=== PATIENT | female | born 1965 | race African-American/Black ===

== ENCOUNTER 2016-12-02 09:09 | Day surgery (SDC) | payer OTHER ==
[2016-12-01 11:13] VITALS: BMI 32.5
[2016-12-02 09:30] LABS: BASOPHIL 0.5 % (0-2.0); EOSINOPHIL 0.5 % (0-4.5); MCH 27.6 pg (25.7-33.7); MCHC 32.3 g/dl (32.0-36.0); MEAN CELL VOLUME 85.3 fl (80-96); MEAN PLT VOLUME 8.4 fl (7.5-11.1); NEUTROPHILS 66.3 % (42.8-82.8); PLATELET COUNT 191 K/MM3 (134-434)
[2016-12-02 10:00] LABS: ALBUMIN 3.4 g/dl (3.4-5.0); ANION GAP 8 (8-16); BILIRUBIN,TOTAL 0.3 mg/dL (0.2-1.0); CALCIUM 9.4 mg/dL (8.5-10.1); CO2 29 mmol/L (21-32); CREATININE 0.9 mg/dL (0.55-1.02); GLUCOSE,RANDOM 84 mg/dL (74-106); SGOT/AST 22 U/L (15-37); SGPT/ALT 20 U/L (12-78)
[2016-12-02 10:03] LABS: ALK PHOS 75 U/L (45-117)
[2016-12-02] MEDS ORDERED: PROPOFOL 20 ML ONE ×3 (12:22→12:53)
[2016-12-02] MEDS ORDERED: MIDAZOLAM HCL 2 MG/2 ML SINGLE DOSE VIAL ONE (12:23)
[2016-12-02] MEDS ORDERED: SUCCINYLCHOLINE CHLORIDE 200 MG/10 ML VIAL ONE (12:23)
[2016-12-02] MEDS ORDERED: IODINE/POTASSIUM IODIDE 5%/10% 14 ML BOTTLE NR ONE (12:50)
[2016-12-02] MEDS ORDERED: FERRIC SUBSULFATE 500 ML BOTTLE TP ONE (12:50)
[2016-12-02] MEDS ORDERED: PROMETHAZINE HCL 25 MG/1 ML VIAL IVPUSH PRN (13:06)
[2016-12-02] MEDS ORDERED: oxyCODONE HCL 5 MG TABLET PO PRN (13:06)
[2016-12-02] MEDS ORDERED: ONDANSETRON 4 MG/2 ML VIAL IVPUSH PRN (13:06)
[2016-12-02 13:24] VITALS: TEMP 98.2
--- NOTE | 2016-12-02 13:46 | HP ---
History & Physical Update - History History: No Change - Physical Physical: No Change - Assessment Assessment: No Change - Plan Plan: No Change
[2016-12-02] MEDS ORDERED: ACETAMINOPHEN INJECTION 100 ML IVPB ONE (14:23)
[2016-12-02] MEDS ORDERED: LACTATED RINGERS SOLUTION 1,000 ML IV SCH (14:30)
[2016-12-02] MEDS ORDERED: ACETAMINOPHEN 1000 MG/100 ML VIAL (NON FORMULARY) IVPB ONE (14:40)
--- NOTE | 2016-12-02 15:03 | OP ---
Operative Note - Note: Operative Date: 12/02/16 Pre-Operative Diagnosis: HPV. Cervical Dysplasia Operation: Leep cone Post-Operative Diagnosis: Same as Pre-op Surgeon: Elyse Nicole Anesthesia: General Estimated Blood Loss (mls): 20 Operative Report Dictated: Yes
[2016-12-02 18:09] VITALS: BP 130/70; PULSE 74
--- NOTE | 2016-12-03 09:52 | OP ---
DATE OF OPERATION: 12/02/2016 PREOPERATIVE DIAGNOSIS: Human papillomavirus and cervical dysplasia. POSTOPERATIVE DIAGNOSIS: Human papillomavirus and cervical dysplasia. OPERATION: Loop electrosurgical excision procedure cone. SURGEON: Elyse Nicole M.D. ANESTHESIA: General. ESTIMATED BLOOD LOSS: 20 mL. PROCEDURE: Patient was taken to the operating room, placed in dorsal lithotomy position, prepped and draped in the usual sterile fashion. A timeout was performed in accordance with hospital regulation. Speculum was placed in the vagina. Lugol's was placed on the cervix. A large LEEP cone was then performed. Ectocervix was done and then endocervix was sbumitted to Pathology. Cautery with the bulb was then done for hemostasis. Monsel's was then placed. All hemostasis was achieved. All instruments were then removed. Patient tolerated the procedure well and was taken to the recovery room in stable condition. ELYSE NICOLE M.D. [id number]
--- NOTE | 2016-12-03 15:19 | PATH ---
Surgical Pathology Report Patient Name: ROBERT BRISCOE [facility]. Rec. #: [id number] /Age/Gender: 1965 (Age: 51) / F Account: [id number] Location: [facility] SURGICAL Taken: 12/02/2016 Received: 12/02/2016 Reported: 12/03/2016 Physicians: Elyse Nicole M.D. Specimen(s) Received A: EXOCERVICAL BIOPSY B: ENDOCERVICAL CURETTINGS Clinical History HPV Final Diagnosis A. CERVIX, EXOCERVICAL LEEP CONE EXCISION: CERVICAL MUCOSA WITH EXTENSIVE DENUDEMENT OF EPITHELIUM, WITH AREAS OF HEMORRHAGE SUGGESTIVE OF PRIOR BIOPSY SITE. RESIDUAL SQUAMOUS EPITHELIUM WITH MODERATE DYSPLASIA (HIGH GRADE SQUAMOUS INTRAEPITHELIAL LESION, HSIL) PRESENT, AND FOCALLY EXTENDING TO INKED MARGIN. B. CERVIX, ENDOCERVICAL LEEP CONE EXCISION: CERVICAL MUCOSA WITH EXTENSIVE DENUDEMENT OF EPITHELIUM, WITH FOCAL RESIDUAL BENIGN SQUAMOUS EPITHELIUM PRESENT. NO INTACT ENDOCERVICAL ILEUM IDENTIFIED. Comment: Recommend correlation with clinical findings and follow up as clinically indicated. Electronically Signed Mario Nye M.D. Gross Description A. Received in formalin, labeled "exocervical," is a 1.8 cm in diameter annular, unoriented portion of soft tissue, consistent with a cervical LEEP cone biopsy. The mucosa has a brown, mottled appearance. The specimen is inked green, serially sectioned and entirely and sequentially submitted in 4 cassettes. B. Received in formalin, labeled "endocervical," 2.3 x 1.5 x 0.3 cm irregular, unoriented portion of soft tissue, consistent with a portion of cervix. The specimen is inked green, serially sectioned and entirely submitted in 2 cassettes. 12/02/201612/02/2016
== END 2016-12-02 16:00 | disposition home or self-care (01) ==
LOC: JASU-SURG 09:09
PROVIDERS: ATTEND Obstetrics & Gynecology
PROC: 0UBC7ZX Excision of Cervix, Via Natural or Artificial Opening, Diagnostic (ICD-10-PCS; principal; 2016-12-02 11:00)
DX: N87.1 Moderate cervical dysplasia (principal); R87.810 Cervical high risk human papillomavirus (HPV) DNA test positive
CPT/HCPCS: 36415; 80053; 84702; 85025; 86850; 86900; 86901; 88307-TC; 94760

== ENCOUNTER 2016-12-29 19:51 | Emergency (ER) | payer OTHER ==
--- NOTE | 2016-12-29 20:18 | PDOC ---
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 Pt cannot recall any injury. Pt exacerbated on movement/leaning forward. No alleviating factors. Took tylenol with codeine ( last dose today at ~1530hrs: ) without relief.
[2016-12-29 20:26] VITALS: BP 127/53; PULSE 78; TEMP 98.8; BMI 32.9
--- NOTE | 2016-12-29 21:37 | PDOC ---
History of Present Illness - General Chief Complaint: Back Pain Stated Complaint: BACK PAIN Time Seen by Provider: 12/29/16 20:16 History Source: Patient Exam Limitations: No Limitations - History of Present Illness Initial Comments: 12/29/16 21:36 CHIEF COMPLAINT: Back pain HISTORY OF PRESENT ILLNESS: This is a a 51 year old female with a history of lupus on daily Plaquenil who presents complaining of two days of lower back pain. 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 She denies any specific injury prior to the onset of the pain. She does not usually get back pain. She has had some chills, but denies fever. She denies dysuria, hematuria, nausea/vomiting, abdominal pain, or any other symptoms. She has been taking Tylenol and codeine without relief. REVIEW OF SYSTEMS: GENERAL/CONSTITUTIONAL: Chills, no fever. No weakness. No weight change. HEAD, EYES, EARS, NOSE AND THROAT: No change in vision. No ear pain or discharge. No sore throat. CARDIOVASCULAR: No chest pain or palpitations. RESPIRATORY: No cough, wheezing, or shortness of breath. GASTROINTESTINAL: No nausea, vomiting, diarrhea or constipation. GENITOURINARY: No dysuria, frequency, or change in urination. MUSCULOSKELETAL: See HPI. SKIN: No rash or easy bruising. NEUROLOGIC: No headache, vertigo, loss of consciousness, or loss of sensation. PSYCHIATRIC: No depression or anxiety. ENDOCRINE: No increased thirst. No abnormal weight change. HEMATOLOGIC/LYMPHATIC: No anemia, easy bleeding, or history of blood clots. ALLERGIC/IMMUNOLOGIC: No hives or skin allergy. No latex allergy. PHYSICAL EXAM: GENERAL: The patient is awake, alert, and fully oriented, in no acute distress. ENT: Pupils equal, round and reactive to light, extraocular movements intact, sclera anicteric, conjunctiva clear. Neck supple. LUNGS: Clear to auscultation bilaterally. Normal excursion. No respiratory distress or use of accessory muscles. CV: RRR, S1/S2, no MRG. Cap refill < 2 sec. ABDOMEN: Soft, non-distended, non-tender anteriorly even to deep palpation. EXTREMITIES: Normal range of motion, no edema. NEUROLOGICAL: Normal speech, normal gait. CN II-XII grossly intact. No midline cervical vertebral tenderness. Left CVA tenderness. 5/5 upper and lower extremity strength bilaterally. No saddle anesthesia. PSYCH: Normal mood, normal affect. SKIN: Warm, dry, normal turgor, no rashes or lesions noted. Past History - Past Medical History Allergies/Adverse Reactions: Allergies Allergy/AdvReac Type Severity Reaction Status Date / Time No Known Allergies Allergy Verified 12/29/16 20:17 Home Medications: Ambulatory Orders Acetaminophen [Tylenol .Regular Strength -] 650 mg PO Q4H PRN #30 tablet Hydroxychloroquine So4 [Plaquenil -] 200 mg PO DAILY 03/23/16 Losartan Potassium [Cozaar -] 50 mg PO DAILY 03/23/16 Methotrexate [Mexate -] 6 mg PO Q7D 03/23/16 Prednisone [Deltasone -] 2.5 mg PO DAILY 08/06/16 Folic Acid 2 mg PO DAILY 12/01/16 Ibuprofen [Motrin -] 600 mg PO QID PRN #28 tablet 12/02/16 Metronidazole 0.75% Vag. Gel [Metrogel 0.75% *Vaginal Gel* -] 1 applic VG HS #1 tube 12/02/16 Levofloxacin [Levaquin] 750 mg PO DAILY #4 tab 12/30/16 Anemia: Yes Asthma: No Cancer: No Cardiac Disorders: Yes (endocarditis) CVA: No COPD: No CHF: No Dementia: No Diabetes: No GI Disorders: No Disorders: No HTN: No Hypercholesterolemia: No Liver Disease: No Seizures: No Thyroid Disease: No - Immunization History Immunization Up to Date: Yes - Psycho/Social/Smoking Cessation Hx Anxiety: No Suicidal Ideation: No Smoking Status: Yes Smoking History: Never smoked Have you smoked in the past 12 months: No Number of Cigarettes Smoked Daily: 0 If you are a former smoker, when did you quit?: 10YRS AGO Information on smoking cessation initiated: No Hx Alcohol Use: No Drug/Substance Use Hx: No Substance Use Type: None Hx Substance Use Treatment: No *Physical Exam - Vital Signs Last Vital Signs Temp Pulse Resp BP Pulse Ox 98.8 F 78 18 127/53 100 12/29/16 20:17 12/29/16 20:17 12/29/16 20:17 12/29/16 20:17 12/29/16 20:17 ED Treatment Course - LABORATORY CBC & Chemistry Diagram: 12/30/16 00:10 12/30/16 00:10 Medical Decision Making - Medical Decision Making 12/29/16 22:20 A/P: 51 year old female with low back pain and CVA tenderness. Patient does not usually get low back pain and does not recall a specific inciting injury. 1. UA/culture 2. Lumbar xray 3. Toradol/diazepam/oxycodone 4. Re-assess 12/29/16 22:56 -UA with 3+ leukesterase; suspect UTI/pyelo vs. stone -Diazepam/oxycodone canceled, xray canceled -Urine culture ordered -Will obtain CT spiral renal stone protocol -To main ED for further evaluation *DC/Admit/Observation/Transfer Diagnosis at time of Disposition: Urinary tract infection Qualifiers: Urinary tract infection type: site unspecified Hematuria presence: without hematuria Qualified Code(s): N39.0 - Urinary tract infection, site not specified - Discharge Dispostion Disposition: HOME - Prescriptions Prescriptions: Levofloxacin [Levaquin] 750 mg PO DAILY #4 tab - Referrals Referrals: Eric Gonzalez MD [Primary Care Provider] - - Patient Instructions Printed Discharge Instructions: Urinary Tract Infection Additional Instructions: Drink plenty of fluids You were given 1 dose of Levaquin tonight, start taking it again later tomorrow , 1 tablet of 750 mg once daily for another 4 days return into the ER if fever, vomiting or feeling sicker You can take Tylenol 650 mg every 4 hours or Motrin 600 mg every 6 hours for any pain You were a little anemic and had a nodule on your CT scan, you were given a copy of your CT scan to follow-up although followings that were highlighted for you of a focal opacity that had been seen prior, the nodule and also a subpleural bullae - Post Discharge Activity Work/School Note: Back to Work
[2016-12-29 21:59] LABS: URINE APPEARANCE SLCLOUDY; URINE BILIRUBIN NEGATIVE (NEGATIVE); URINE BLOOD NEGATIVE (NEGATIVE); URINE COLOR AMBER; URINE GLUCOSE (UA) NEGATIVE (NEGATIVE); URINE KETONE NEGATIVE (NEGATIVE); URINE NITRITE NEGATIVE (NEGATIVE); URINE UROBILINOGEN 2.0 E.U/dl E.U./dl (0.2-1.0)
[2016-12-29] MEDS ORDERED: OXYCODONE/APAP 5/325MG COMBO TABLET PO ONE (22:14)
[2016-12-29] MEDS ORDERED: diazePAM 2 MG TABLET PO ONE (22:14)
[2016-12-29] MEDS ORDERED: KETOROLAC TROMETHAMINE 30 MG/1 ML VIAL IM ONE (22:14)
[2016-12-29 22:18] LABS: URINE LEUK ESTERASE 3+ (NEGATIVE); URINE PROTEIN 2+ (NEGATIVE)
[2016-12-29 22:21] LABS: URINE HYALINE CAST 81 /lpf; URINE MUCUS MANY; URINE RBC 7 /hpf (0-3); URINE WBC 18 /hpf (3-5)
[2016-12-29] MEDS ORDERED: KETOROLAC TROMETHAMINE 30 MG/1 ML VIAL IVPUSH ONE (22:53)
--- NOTE | 2016-12-29 23:05 | PDOC ---
*Physical Exam - Vital Signs Last Vital Signs Temp Pulse Resp BP Pulse Ox 98.8 F 78 18 127/53 100 12/29/16 20:17 12/29/16 20:17 12/29/16 20:17 12/29/16 20:17 12/29/16 20:17 - Physical Exam General Appearance: Yes: Nourished Respiratory/Chest: negative: Respiratory Distress Neurologic: positive: Fully Oriented, Alert, Normal Mood/Affect ED Treatment Course - LABORATORY CBC & Chemistry Diagram: 12/30/16 00:10 12/30/16 00:10 - ADDITIONAL ORDERS Additional order review: Laboratory Results 12/29/16 21:43 Urine Color Nakia Urine Appearance Slcloudy Urine pH 5.0 Ur Specific [place] 1.027 Urine Protein 2+ H Urine Glucose (UA) Negative Urine Ketones Negative Urine Blood Negative Urine Nitrite Negative Urine Bilirubin Negative Urine Urobilinogen 2.0 e.u/dl H Ur Leukocyte Esterase 3+ H Urine RBC 7 Urine WBC 18 Ur Epithelial Cells Rare Hyaline Casts 81 Urine Mucus Many Medical Decision Making - Medical Decision Making 12/30/16 02:11 With UTI, history of lupus, on plaquinil, no fever and appears well. Labs are stable, CT shows no acute problems. Patient will be sent home on Levaquin and the back pain and lupus Has had anemia prior, discussed with her and she will follow-up with her doctor Patient was given copy of CT report with findings to follow-up with highlight if for her, questionable chronic versus recurrent [place] at the base of the lung, nodule, bullae 12/30/16 02:13 *DC/Admit/Observation/Transfer Diagnosis at time of Disposition: Urinary tract infection Qualifiers: Urinary tract infection type: site unspecified Hematuria presence: without hematuria Qualified Code(s): N39.0 - Urinary tract infection, site not specified - Discharge Dispostion Disposition: HOME Admit: No - Prescriptions Prescriptions: Levofloxacin [Levaquin] 750 mg PO DAILY #4 tab - Referrals Referrals: Eric Gonzalez MD [Primary Care Provider] - - Patient Instructions Printed Discharge Instructions: Urinary Tract Infection Additional Instructions: Drink plenty of fluids You were given 1 dose of Levaquin tonight, start taking it again later tomorrow , 1 tablet of 750 mg once daily for another 4 days return into the ER if fever, vomiting or feeling sicker You can take Tylenol 650 mg every 4 hours or Motrin 600 mg every 6 hours for any pain You were a little anemic and had a nodule on your CT scan, you were given a copy of your CT scan to follow-up although followings that were highlighted for you of a focal opacity that had been seen prior, the nodule and also a subpleural bullae - Post Discharge Activity Work/School Note: Back to Work
[2016-12-29] MEDS ORDERED: KETOROLAC TROMETHAMINE 30 MG/1 ML VIAL ONE (23:56)
[2016-12-30 00:22] LABS: BASOPHIL 0.5 % (0-2.0); EOSINOPHIL 0.4 % (0-4.5); MCH 27.5 pg (25.7-33.7); MCHC 32.3 g/dl (32.0-36.0); MEAN CELL VOLUME 85.1 fl (80-96); MEAN PLT VOLUME 8.8 fl (7.5-11.1); NEUTROPHILS 73.7 % (42.8-82.8); PLATELET COUNT 173 K/MM3 (134-434); RDW 16.1 % (11.6-15.6); WHITE BLOOD COUNT 4.5 K/mm3 (4.0-10.0)
[2016-12-30 00:44] LABS: CALCIUM 8.7 mg/dL (8.5-10.1); CREATININE 1.2 mg/dL (0.55-1.02)
[2016-12-30] MEDS ORDERED: LEVOFLOXACIN 750 MG TABLET PO ONE (01:00)
[2016-12-30] MEDS ORDERED: LEVOFLOXACIN 500 MG TABLET (FP) ONE (01:11)
[2016-12-30] MEDS ORDERED: LEVOFLOXACIN 250 MG TABLET (FP) ONE (01:12)
== END 2016-12-30 01:26 | disposition home or self-care (01) ==
LOC: JERFT 19:51 → JER 19:51
PROC: 3E0333Z Introduction of Anti-inflammatory into Peripheral Vein, Percutaneous Approach (ICD-10-PCS; principal; 2016-12-29)
DX: N39.0 Urinary tract infection, site not specified (principal)
CPT/HCPCS: 36415; 74176; 80048; 81003; 81015; 85025; 99281-25

== ENCOUNTER 2017-01-27 07:34 | Day surgery (SDC) | payer OTHER ==
[2017-01-26 11:50] VITALS: BMI 32.4
[~2017-01-27 07:34] MED LIST: BUPIVACAINE HCL/PF 0.5% (5MG/ML) 10 ML VIAL IJ ONE
[2017-01-27] MEDS ORDERED: PROPOFOL 20 ML ONE ×2 (08:28)
[2017-01-27] MEDS ORDERED: MIDAZOLAM HCL 2 MG/2 ML SINGLE DOSE VIAL ONE (08:29)
[2017-01-27] MEDS ORDERED: ROCURONIUM BROMIDE 50 MG/5 ML VIAL ONE (08:29)
[2017-01-27] MEDS ORDERED: SUCCINYLCHOLINE CHLORIDE 200 MG/10 ML VIAL ONE (08:29)
[2017-01-27] MEDS ORDERED: ceFAZolin SODIUM 1 GM VIAL IVPB ONE (09:42)
[2017-01-27] MEDS ORDERED: ceFAZolin SODIUM 1 GM VIAL ONE ×2 (09:45→09:55)
[2017-01-27] MEDS ORDERED: ONDANSETRON 4 MG/2 ML VIAL IVPUSH PRN (09:49)
[2017-01-27] MEDS ORDERED: DEXAMETHASONE SOD PHOSPHATE 4 MG/1 ML VIAL ONE (09:55)
[2017-01-27] MEDS ORDERED: NEOSTIGMINE METHYLSULFATE 0.5 MG/ML - 10 ML MDV ONE (11:03)
[2017-01-27] MEDS ORDERED: GLYCOPYRROLATE 0.2 MG/1 ML VIAL ONE ×2 (11:05→11:24)
[2017-01-27] MEDS ORDERED: BUPIVACAINE HCL/PF 0.5% (5MG/ML) 10 ML VIAL IJ ONE ×2 (11:10)
--- NOTE | 2017-01-27 11:22 | HP ---
History & Physical Update - History History: No Change - Physical Physical: No Change - Assessment Assessment: No Change - Plan Plan: No Change
[2017-01-27] MEDS ORDERED: DEXTROSE 5%-LACTATED RINGERS 1,000 ML IV SCH (11:30)
[2017-01-27] MEDS ORDERED: ZOLPIDEM TARTRATE 5 MG TABLET PO PRN (11:33)
[2017-01-27] MEDS ORDERED: ACETAMINOPHEN 325 MG TABLET (FP) PO PRN (11:59)
[2017-01-27] MEDS ORDERED: oxyCODONE HCL 5 MG TABLET PO PRN (11:59)
--- NOTE | 2017-01-27 11:59 | OP ---
Operative Note - Note: Operative Date: 01/27/17 Pre-Operative Diagnosis: Cervical Dysplasia. HPV Operation: Robotic laparoscopicTotal Hysterectomy. Bilateral salpingectomy Findings: normal uterus bilateral salpingectomy clips removed Post-Operative Diagnosis: Same as Pre-op Surgeon: Elyse Nicole [employer] Supervisor: Alva Goddard Anesthesia: General Estimated Blood Loss (mls): 50 Operative Report Dictated: Yes
[2017-01-27] MEDS ORDERED: HYDROmorphone HCL CARPU-JECT 1 MG/1 ML DISP.SYRIN IVPB PRN (12:11)
[2017-01-27] MEDS: HYDROmorphone HCL CARPU-JECT 1 MG/1 ML DISP.SYRIN IVPUSH PRN ×2 (12:15→12:50)
[2017-01-27] MEDS ORDERED: HYDROmorphone HCL CARPU-JECT 2 MG/1 ML DISP.SYRIN ONE (12:15)
[2017-01-27] MEDS ORDERED: BUPIVACAINE HCL/PF 0.5% (5MG/ML) 10 ML VIAL ONE (12:18)
--- NOTE | 2017-01-27 12:52 | CON.CARD ---
Consult Consult Specialty:: Cardiology Referred by:: Dr. Nicole Reason for Consultation:: Post op follow up - History of Present Illness Chief Complaint: s/p lap hysterectomy and salpingectomy History of Present Illness: 51 year old woman with a history of HTN, SLE with h/o associated pericardial effusion now s/p elective hysterectomy and salpingectomy. Pt was seen and examined in the recovery room in [facility]. tolerated procedure well without complication. only c/o mild pain presently. denies any chest pain, sob, palpitations. - History Source History Provided By: Patient, Medical Record Limitations to Obtaining History: No Limitations - Past Medical History Cardio/Vascular: Yes: HTN, Other (h/o pericardial effusion) ...LMP Comment: 2008 Rheumatology: Yes: Lupus - Alcohol/Substance Use Hx Alcohol Use: No - Smoking History Smoking history: Never smoked Have you smoked in the past 12 months: No Aproximately how many cigarettes per day: 0 If you are a former smoker, when did you quit?: 10YRS AGO - Social History ADL: Independent History of Recent Travel: No Home Medications - Allergies Allergies/Adverse Reactions: Allergies Allergy/AdvReac Type Severity Reaction Status Date / Time No Known Drug Allergies Allergy Verified 01/27/17 08:33 NSAIDS (Non-Steroidal AdvReac Unknown Verified 01/27/17 08:33 Anti-Inflamma - Home Medications Home Medications: Ambulatory Orders Acetaminophen [Tylenol .Regular Strength -] 650 mg PO Q4H PRN #30 tablet Hydroxychloroquine So4 [Plaquenil -] 200 mg PO DAILY 03/23/16 Losartan Potassium [Cozaar -] 50 mg PO DAILY 03/23/16 Methotrexate [Mexate -] 6 mg PO Q7D 03/23/16 Folic Acid 2 mg PO DAILY 12/01/16 Oxycodone HCl/Acetaminophen [Percocet 5-325 mg Tablet -] 1 tab PO Q4H #20 tablet MDD 6 01/27/17 Family Disease History - Family Disease History Family History: Denies Review of Systems - Review of Systems Constitutional: denies: No Symptoms, Chills, Diaphoresis, Fever, Lethargy, Loss of Appetite, Malaise, Night Sweats, Unintentional Wgt. Loss, Weakness, Other Eyes: denies: No Symptoms, Blind Spots, Blurred Vision, Double Vision, Eye Pain , Floaters, Photophobia, Recent Change in Vision, Other HENT: denies: No Symptoms, Difficult Swallowing, Ear Discharge, Ear Pain, Epistaxis, Gingival Bleeding, Hearing Loss, Mouth Swelling, Nasal Congestion, Ocular Prosthesis, Throat Pain, Toothache, Ringing in Ears, Other Neck: denies: No Symptoms, Decreased ROM, Lumps, Pain on Movement, Stiffness, Swollen Glands, Tenderness, Other Cardiovascular: denies: No Symptoms, Chest Pain, Edema, Palpitations, Shortness of Breath, Other Respiratory: denies: No Symptoms, Cough, Exercise Intolerance, Hemoptysis, Orthopnea, PND, Snoring, SOB, SOB on Exertion, Wheezing, Other Gastrointestinal: denies: No Symptoms, Abdominal Pain, Bloating, Constipation, Diarrhea, Dysphagia, Indigestion, Melena, Nausea, Rectal Bleeding, Vomiting, Vomiting Blood, Other Genitourinary: denies: No Symptoms, Burning, Discharge, Dysuria, Flank Pain, Frequency, Hematuria, Incontinence, Lesions, Menses, Pain, Testicular Mass, Testicular Pain, Testicular Swelling, Urgency, Vaginal Bleeding, Other Breasts: denies: No Symptoms Reported, See HPI, Breast Implants, Discharge from Nipple, Lumps, Pain, Skin Changes, Other Musculoskeletal: denies: No Symptoms, Back Pain, Crepitus, Decreased ROM, Extremity Pain, Joint Pain, Joint Swelling, Muscle Pain, Muscle Cramps, Muscle Weakness, Other Integumentary: reports: Incision. denies: No Symptoms, Blister, Bruising, Change in Color, Eczema, Erythema, Lesions, Lump, Pallor, Pruritis, Rash, Wound , Other Neurological: denies: No Symptoms, Change in LOC, Change in Speech, Confusion, Dizziness, Headache, Incoordination, Numbness, Parasthesia, Pre-Existing Deficit , Seizure, Syncope, Tremors, Unsteady Gait, Weakness, Other Endocrine: denies: No Symptoms, Excessive Sweating, Flushing, Increased Hunger, Increased Thirst, Intolerance to Cold, Intolerance to Heat, Unexplained Weight Gain, Unexplained Weight Loss, Other Hematology/Lymphatic: denies: No Symptoms, Easily Bruised, Excessive Bleeding, Swollen Glands, Other Psychiatric: denies: No Symptoms, Altered Sleep Pattern, Anxiety, Depression, Hallucinations, Panic, Paranoia, Suicidal, Other - Risk Factors Known Risk Factors: Yes: Hypertension Vital Signs: Vital Signs Temperature 97.7 F 01/27/17 11:28 Pulse Rate 86 01/27/17 12:30 Respiratory Rate 16 01/27/17 12:30 Blood Pressure 114/65 01/27/17 12:30 O2 Sat by Pulse Oximetry (%) 100 01/27/17 12:30 Constitutional: Yes: Well Nourished, No Distress, Calm Eyes: Yes: WNL, Conjunctiva Clear, EOM Intact, PERRL HENT: Yes: WNL, Atraumatic, Normocephalic Neck: Yes: WNL, Supple, Trachea Midline Respiratory: Yes: WNL, Regular, CTA Bilaterally. No: Rales, Rhonchi, Wheezes Gastrointestinal: Yes: WNL, Normal Bowel Sounds, Soft. No: Distention, Tenderness Renal/: Yes: WNL Cardiovascular: Yes: WNL, Regular Rate and Rhythm. No: Bradycardia, Tachycardia , Pulse Irregular, Gallop, Rub, Varicosities JVD: No Carotid Bruit: No PMI: Non-Displaced Heart Sounds: Yes: S1, S2. No: Split S2, S3, S4, Clicks, Gallop, Rub, Bruit Murmur: No: Systolic Murmur, Diastolic Murmur Musculoskeletal: Yes: WNL Extremities: Yes: WNL Edema: No Peripheral Pulses WNL: Yes Peripheral Pulses: 2+ Left Doralis Pedis, 2+ Right Dorsalis Pedis Integumentary: Yes: WNL Neurological: Yes: WNL, Alert, Oriented, Cran Nerves II-XII Intact ...Motor Strength: WNL Psychiatric: Yes: WNL, Alert, Oriented - Other Data Labs, Other Data: Laboratory Tests 01/25/17 01/25/17 14:00 14:00 WBC 5.4 Hgb 11.3 D Hct 35.1 D Plt Count 169 Sodium 141 Potassium 4.1 Chloride 104 Carbon Dioxide 27 BUN 15 D Creatinine 1.0 Random Glucose 85 Calcium 9.3 Total Bilirubin 0.4 D AST 24 ALT 22 Alkaline Phosphatase 88 Total Protein 8.2 Albumin 3.5 ekg-reviewed from office Echo: Report Reviewed Imaging - Results Chest X-ray: Report Reviewed, Image Reviewed EKG: Report Reviewed, Image Reviewed Other: Report Reviewed, Image Reviewed Assessment/Plan 51 year old woman with a history of HTN, SLE with h/o associated pericardial effusion now s/p elective hysterectomy and salpingectomy. Pt was seen and examined in the recovery room in [place]. tolerated procedure well without complication. only c/o mild pain presently. denies any chest pain, sob, palpitations. Perioperative cardiac evaluation -pt tolerated procedure well without cardiac complication -resume home Losartan once tolerating po meds -routine post operative monitoring, does not require telemetry -no additional inpatient cardiac work up needed, will be available if any questions arise
--- NOTE | 2017-01-27 23:21 | OP ---
DATE OF OPERATION: 01/27/2017 PREOPERATIVE DIAGNOSIS: Cervical dysplasia and human papilloma virus. PROCEDURE: Robotic laparoscopic total hysterectomy and bilateral salpingectomy. POSTOPERATIVE DIAGNOSIS: Cervical dysplasia and human papilloma virus. SURGEON: Jace Christie MD BLOCK CAPTAIN: Alva Goddard DO ANESTHESIOLOGIST: Geena Pride CRNA and James Jones MD ANESTHESIA: General. SPECIMEN REMOVED: Uterus, fallopian tube clips and bilateral fallopian tubes. ESTIMATED BLOOD LOSS: 50 mL. DESCRIPTION OF PROCEDURE: The patient was taken to the operating room and placed in the dorsal lithotomy position, prepped and draped in the usual sterile fashion. Speculum was placed in the vagina. Anterior lip was grasped with single-tooth tenaculum. The cervix was then dilated to accommodate the uterine manipulator. Jones catheter was inserted into the bladder. Attention was then draw to the umbilicus after an 8-mm umbilical incision was made. Veress needle was inserted into the cavity. Approximately 3-4 L of CO2 was insufflated in the cavity. The Veress needle was then removed and an 8-mm trocar was inserted. Visualization revealed normal uterus and tube, which had had clips placed. Salpingectomy clips were seen on the right side. Two tenaculums on the left were placed, one AirSeal cannula in the upper abdomen and another 8-mm trocar under direct visualization. Two cannulae were placed on the right parallel to each other at the same level of the umbilicus and the table was placed in steep Trendelenburg. The Da Flavio robot was then side docked to the patient's bedside. Trocar was then inserted onto the Da Flavio and all trocars were docked. Instruments were replaced under direct visualization, vessel sealer on the left and Endoshears and tenaculum on the right. After instruments had been placed, attention was then placed to the console where control of the console was done. Tenaculum was then used to move the uterus. The uteroovarian ligament was identified and clamped on the left. Uterine arteries were identified and clamped on the left. Vesicouterine section was then entered and bladder was bluntly dissected out of the operative field. Cardinal ligament was identified and clamped down to the level of the uterosacral ligaments. The tenaculum was then moved to the left where the right side was done. The right uteroovarian ligament was identified, clamped and cut. Uterine arteries were clamped and cut and cardinal ligament was identified, clamped and cut. The bladder was bluntly dissected out of the operative field. A colpotomy had been done, but the manipulator was then placed in the endometrial cavity. The balloon was then removed. Endoshears were then used to cut the cervix and the vagina away from each other. Hemostasis was achieved. Uterus was then removed and the cervix. Tubes were bilaterally grasped and vessel sealer used to remove the fallopian tubes bilaterally. Two Endoclips were seen on the right side. The bowel was noted to have attachment to the clip and that was removed. Clip was removed from the vagina. V-Loc 0 suture was then grasped and passed through the vagina and continuous stitch using 0 V-Loc suture and oversewn in the middle was then done. Seal was confirmed. Ureters bilaterally were noted to have peristalsis. Good hemostasis was achieved. Irrigation done. Needle was then removed through the trocar and all trocars were then removed. CO2 was removed. Hemostasis was achieved. Incisions were then closed using 4-0 Biosyn suture and estimated blood loss was 50 mL. JACE CHRISTIE M.D. [id number]
[2017-01-28 07:56] LABS: BASOPHIL 0.2 % (0-2.0); MCH 28.1 pg (25.7-33.7); MCHC 32.7 g/dl (32.0-36.0); MEAN CELL VOLUME 85.7 fl (80-96); MEAN PLT VOLUME 8.3 fl (7.5-11.1); NEUTROPHILS 88.8 % (42.8-82.8); PLATELET COUNT 147 K/MM3 (134-434); RDW 17.5 % (11.6-15.6); WHITE BLOOD COUNT 6.6 K/mm3 (4.0-10.0)
[2017-01-28] MEDS ORDERED: ENOXAPARIN NA (PORCINE) 40 MG/0.4 ML DISP.SYRIN SQ SCH (10:00)
[2017-01-28 10:20] VITALS: BP 112/72; PULSE 77; TEMP 98.6
[2017-01-28] MEDS ORDERED: OXYCODONE/APAP 5/325MG COMBO TABLET PO PRN (11:26)
[2017-01-28] MEDS ORDERED: SIMETHICONE 80 MG TAB.CHEW (FP) PO PRN (11:26)
--- NOTE | 2017-01-28 12:08 | PN ---
Progress Note (SOAP) - Subjective Chief Complaint: Pt doing well +flatus - Current Medications Current Medications: Active Medications Acetaminophen (Tylenol -) 650 mg PO Q4H PRN PRN Reason: PAIN Stop: 01/30/17 11:58 Last Admin: 01/28/17 07:59 Dose: 650 mg Enoxaparin Sodium (Lovenox -) 40 mg SQ DAILY MAURICIO Last Admin: 01/28/17 09:58 Dose: 40 mg Hydromorphone HCl (Dilaudid Injection -) 1 mg IVPUSH [id number] PRN PRN Reason: PAIN Stop: 01/30/17 09:50 Last Admin: 01/27/17 12:50 Dose: 0.5 mg Hydromorphone HCl (Dilaudid Injection -) 1 mg IVPB Q4H PRN PRN Reason: PAIN Last Admin: 01/27/17 17:41 Dose: 1 mg Dextrose/Lactated Ringer's (D5-Lr -) 1,000 mls @ 125 mls/hr IV ASDIR MAURICIO Oxycodone HCl (Roxicodone -) 10 mg PO Q4H PRN PRN Reason: PAIN Last Admin: 01/28/17 07:55 Dose: 10 mg Simethicone (Mylicon -) 80 mg PO Q4H PRN PRN Reason: GAS Zolpidem Tartrate (Ambien -) 5 mg PO HS PRN PRN Reason: INSOMNIA - Objective Vital Signs: Vital Signs Temperature 98.6 F 01/28/17 10:00 Pulse Rate 77 01/28/17 10:00 Respiratory Rate 20 01/28/17 10:00 Blood Pressure 112/72 01/28/17 10:00 O2 Sat by Pulse Oximetry (%) 100 01/27/17 14:20 Constitutional: Yes: Well Nourished, No Distress Neck: Yes: WNL Cardiovascular: Yes: WNL Gastrointestinal: Yes: WNL, Normal Bowel Sounds, Soft Musculoskeletal: Yes: WNL Extremities: Yes: WNL Edema: No Integumentary: Yes: WNL Wound/Incision: Yes: Clean/Dry, Well Approximated Labs Lab Results: CBC, BMP 01/28/17 06:00 Problem List - Problems (1) Status post hysterectomy Code(s): Z90.710 - ACQUIRED ABSENCE OF BOTH CERVIX AND UTERUS Assessment/Plan S/P Lap Robotic total hysterectomy bilateral salpingectomy POD 1 Plan DC home RTO 2 weeks
--- NOTE | 2017-01-31 11:34 | PATH ---
Surgical Pathology Report Patient Name: ROBERT BRISCOE [facility]. Rec. #: [id number] /Age/Gender: 1965 (Age: 51) / F Account: [id number] Location: AMBULATORY SURG Taken: 01/27/2017 Received: 01/27/2017 Reported: 01/31/2017 Physicians: Elyse Nicole M.D. Specimen(s) Received A: LEFT FALLOPIAN TUBE B: RIGHT FALLOPIAN TUBE C: UTERUS AND CERVIX Clinical History High grade dysplasia Final Diagnosis A. FALLOPIAN TUBE, LEFT, SALPINGECTOMY: BENIGN FALLOPIAN TUBE WITH FOCAL FIBRINOHEMORRHAGIC ADHESIONS. B. FALLOPIAN TUBE, RIGHT, SALPINGECTOMY: BENIGN FALLOPIAN TUBE WITH VASCULAR CONGESTION. C. UTERUS AND CERVIX, ROBOTIC ASSISTED LAPAROSCOPIC TOTAL HYSTERECTOMY: PORTION OF CERVIX: ENDOCERVIX WITH MILD CHRONIC CERVICITIS; NO ECTOCERVICAL MUCOSA PRESENT (SEE COMMENT). ENDOMETRIUM: INACTIVE/ATROPHIC. MYOMETRIUM: FOCAL ADENOMYOSIS. UTERINE SEROSA: WITHOUT SIGNIFICANT PATHOLOGIC CHANGES. Comment: No ectocervical squamous mucosa is present in the current specimen; refer to [id number] for the prior cervical cone biopsy/excision results. Electronically Signed Eleazar Stroud M.D. Gross Description A. Received in formalin labeled "left fallopian tube" is a 1.8 cm in length fimbriated portion of fallopian tube. The outer surface is austin-pink. Sectioning reveals a pinpoint lumen. Coating [employer]aking [employer] sections are submitted in 2 cassettes as follows: 1-fimbria; 2-cross sections of fallopian tube. B. Received in formalin labeled "right fallopian tube" is a 1.5 cm in length fimbriated portion of fallopian tube. The outer surface is austin-pink. Sectioning reveals a pinpoint lumen. Coating And Baking Operator sections are submitted in 2 cassettes as follows: 1-fimbria; 2-cross sections of fallopian tube. C. Received in formalin labeled "uterus and cervix" is a 42 g uterus with a small portion of attached cervix. There is no ectocervix present. The specimen measures 6.3 cm from superior to inferior, 4 cm from left to right and 2.3 cm from anterior to posterior. The serosa is austin and smooth. The endometrial cavity measures 4 cm in length and 1.3 cm from cornu to cornu. The endometrium is austin and averages 0.1 cm in thickness. The myometrium is austin-pink and averages 1.1 cm in thickness. No intramural nodules are identified. Coating And Baking Operator sections are submitted in 7 cassettes as follows: 1-cervical stump margin of resection; 2-anterior endocervix; 3-posterior endocervix; 7-6-wuclbvpb endomyometrium; 1-8-qydnrysvu endomyometrium. 01/27/201701/27/2017
== END 2017-01-28 12:45 | disposition home or self-care (01) ==
LOC: JASUSAT 07:34 → EDSTATUS 10:00 → J3W 14:06 → JASUSAT 01-28 12:45
PROVIDERS: ATTEND Obstetrics & Gynecology
PROC: 0UT7FZZ Resection of Bilateral Fallopian Tubes, Via Natural or Artificial Opening With Percutaneous Endoscopic Assistance (ICD-10-PCS; 2017-01-27)
PROC: 8E0W4CZ Robotic Assisted Procedure of Trunk Region, Percutaneous Endoscopic Approach (ICD-10-PCS; 2017-01-27)
PROC: 0UT9FZZ Resection of Uterus, Via Natural or Artificial Opening With Percutaneous Endoscopic Assistance (ICD-10-PCS; principal; 2017-01-27 09:00)
PROC: 0UTC7ZZ Resection of Cervix, Via Natural or Artificial Opening (ICD-10-PCS; 2017-01-27 09:00)
DX: N87.9 Dysplasia of cervix uteri, unspecified (principal); R87.810 Cervical high risk human papillomavirus (HPV) DNA test positive; I10 Essential (primary) hypertension
CPT/HCPCS: 58552; S2900; 36415; 85025; 88302-TC; 88307-TC; 94010; 94760

== ENCOUNTER 2017-06-06 19:52 | Inpatient (IN) | payer OTHER ==
[2017-06-06 20:12] VITALS: BMI 30.5
--- NOTE | 2017-06-06 20:41 | PDOC ---
History of Present Illness - History of Present Illness Initial Comments: 06/06/17 21:33 52 F with a PMHx of lupus presents to the ED with SOB and chest tightness for 2 days. Patient reports that her SOB is worse when lying down and her chest tightness is worsened on deep breath. She reports similar symptoms multiple times in the past, often in the context of lupus flares. However, she reports that last time she presented to the ED with these symptoms she had pneumonia. She states her SOB and chest tightness feels more like a lupus flare up. She saw her PCP on Tuesday and had a stress test, EKG, and other lab tests done, but the results are not back yet. She denies history of blood clots. No recent travel/immobilization. She denies fever, chills, nausea, vomiting, diarrhea. She denies leg swelling. <Alexandre Palma - Last Filed: 06/07/17 00:09> <Claritza Johnson - Last Filed: 06/07/17 00:24> - General Chief Complaint: Shortness of Breath Stated Complaint: SHORTNESS OF BREATH Time Seen by Provider: 06/06/17 20:41 Past History - Past Medical History Anemia: Yes Asthma: No Cancer: No Cardiac Disorders: Yes (endocarditis) CVA: No COPD: No CHF: No Dementia: No Diabetes: No GI Disorders: No Disorders: No HTN: No Hypercholesterolemia: No Liver Disease: No Seizures: No Thyroid Disease: No - Immunization History Immunization Up to Date: Yes - Psycho/Social/Smoking Cessation Hx Anxiety: No Suicidal Ideation: No Smoking Status: Yes Smoking History: Never smoked Have you smoked in the past 12 months: No Number of Cigarettes Smoked Daily: 0 If you are a former smoker, when did you quit?: 10YRS AGO Hx Alcohol Use: No Drug/Substance Use Hx: No Substance Use Type: None Hx Substance Use Treatment: No <Alexandre Palma - Last Filed: 06/07/17 00:09> <Claritza Johnson - Last Filed: 06/07/17 00:24> - Past Medical History Allergies/Adverse Reactions: Allergies Allergy/AdvReac Type Severity Reaction Status Date / Time No Known Drug Allergies Allergy Verified 06/06/17 20:05 NSAIDS (Non-Steroidal AdvReac Unknown Verified 06/06/17 20:05 Anti-Inflamma Home Medications: Ambulatory Orders Acetaminophen [Tylenol .Regular Strength -] 650 mg PO Q4H PRN #30 tablet Hydroxychloroquine So4 [Plaquenil -] 200 mg PO DAILY 03/23/16 Losartan Potassium [Cozaar -] 50 mg PO DAILY 03/23/16 Methotrexate [Mexate -] 6 mg PO Q7D 03/23/16 Folic Acid 2 mg PO DAILY 12/01/16 Review of Systems - Review of Systems Comments:: 06/06/17 21:36 "GENERAL/CONSTITUTIONAL: No fever or chills. No weakness. HEAD, EYES, EARS, NOSE AND THROAT: No change in vision. No ear pain or discharge. No sore throat. CARDIOVASCULAR: (+) chest pain, shortness of breath. RESPIRATORY: No cough, wheezing, or hemoptysis. GASTROINTESTINAL: No nausea, vomiting, diarrhea or constipation. GENITOURINARY: dysuria, frequency, or change in urination. MUSCULOSKELETAL: No joint or muscle swelling or pain. No neck or back pain. SKIN: No rash NEUROLOGIC: No headache, vertigo, loss of consciousness, or change in strength. ENDOCRINE: No increased thirst. No abnormal weight change. HEMATOLOGIC/LYMPHATIC: No anemia, easy bleeding, or history of blood clots. ALLERGIC/IMMUNOLOGIC: No hives or skin allergy. " <Alexandre Palma - Last Filed: 06/07/17 00:09> *Physical Exam - Vital Signs Last Vital Signs Temp Pulse Resp BP Pulse Ox 98.3 F 60 20 124/67 06/06/17 20:05 06/06/17 20:05 06/06/17 20:05 06/06/17 20:05 - Physical Exam Comments: 06/06/17 21:36 "GENERAL: Awake, alert, and fully oriented, in no acute distress HEAD: No signs of trauma EYES: PERRLA, EOMI, sclera anicteric, conjunctiva clear ENT: Auricles normal inspection, hearing grossly normal, nares patent, oropharynx clear without exudates. Moist mucosa NECK: Normal ROM, supple, no lymphadenopathy, JVD, or masses LUNGS: Breath sounds slightly diminished at bases, clear to auscultation bilaterally. No wheezes, and no crackles HEART: Regular rate and rhythm, normal S1 and S2, no murmurs, rubs or gallops ABDOMEN: Soft, nontender, normoactive bowel sounds. No guarding, no rebound. No masses EXTREMITIES: Normal range of motion, no edema. No clubbing or cyanosis. No cords, erythema, or tenderness NEUROLOGICAL: Cranial nerves II through XII grossly intact. Normal speech, normal gait SKIN: Warm, Dry, normal turgor, no rashes or lesions noted. " <Soheila Palmaan - Last Filed: 06/07/17 00:09> - Vital Signs Last Vital Signs Temp Pulse Resp BP Pulse Ox 98.3 F 60 20 124/67 06/06/17 20:05 06/06/17 20:05 06/06/17 20:05 06/06/17 20:05 <Claritza Johnson - Last Filed: 06/07/17 00:24> Heart Score/ECG Review - History History: Slightly suspicious - Electrocardiogram EKG: Normal - Age Age: 45-65 - Risk Factors Based on the list above the patient has:: No risk factors known - ECG Impressions Comment:: 06/06/17 21:37 EKG with NSR, no RADHA/STDs, no TWIs, intervals wnl, left axis deviation <LouieAlexandre - Last Filed: 06/07/17 00:09> ED Treatment Course - LABORATORY CBC & Chemistry Diagram: 06/06/17 21:05 06/06/17 21:05 <LouieAlexandre - Last Filed: 06/07/17 00:09> - LABORATORY CBC & Chemistry Diagram: 06/06/17 21:05 06/06/17 21:05 - ADDITIONAL ORDERS Additional order review: Laboratory Results 06/06/17 06/06/17 06/06/17 21:40 21:05 21:05 INR 1.20 H PTT (Actin FS) 31.8 D-Dimer 2197 H VBG pH 7.36 POC VBG pCO2 46.4 POC VBG pO2 22.5 L Mixed VBG HCO3 25.8 H Sodium Potassium Chloride Carbon Dioxide Anion Gap BUN Creatinine Creat Clearance w eGFR Random Glucose Calcium Total Bilirubin AST ALT Alkaline Phosphatase Creatine Kinase Creatine Kinase Index CK-MB (CK-2) Troponin I B-Natriuretic Peptide Total Protein Albumin 06/06/17 06/06/17 21:05 21:05 INR PTT (Actin FS) D-Dimer VBG pH POC VBG pCO2 POC VBG pO2 Mixed VBG HCO3 Sodium 139 Potassium 3.9 Chloride 106 Carbon Dioxide 26 Anion Gap 7 L BUN 15 Creatinine 1.0 Creat Clearance w eGFR 57.78 Random Glucose 81 Calcium 9.1 Total Bilirubin 0.3 D AST 28 ALT 18 Alkaline Phosphatase 75 Creatine Kinase 264 H Creatine Kinase Index 0.4 CK-MB (CK-2) 1.114 Troponin I < 0.02 B-Natriuretic Peptide 191.59 H Total Protein 8.5 H Albumin 3.5 06/06/17 21:05 RBC 3.39 L MCV 85.3 MCHC 32.3 RDW 15.1 D MPV 9.4 D Neutrophils % 84.8 H Lymphocytes % 8.4 D Monocytes % 5.8 Eosinophils % 0.1 D Basophils % 0.9 D - RADIOLOGY Radiograph Interpretation: 06/06/17 22:23 Chest X-Ray Reported by Dr. Ric Hewitt Impression: cardiomegaly, no acute pathology. 06/06/17 23:54 Chest CTA Reported by Dr. Ric Hewitt Impression: No evidence of pulmonary embolism. Chronic lung disease and bibasilar atelectasis, left greater than right. Cardiomegaly and trace pericardial effusion. <Claritza Johnson - Last Filed: 06/07/17 00:24> Medical Decision Making - Medical Decision Making 06/06/17 21:37 52 F with SLE presents to ER with SOB and chest pressure, concerning for lupus flare. Pt has h/o PNA but does not appear septic, with no fevers or cough at this time. Low suspicion for ACS given lack of cardiac risk factors, atypical nature of chest pressure, and lack of EKG findings for ischemia. Will r/o PE with ddimer/CTPE. Pt with no significant risk factors but is complaining of pleuritic chest pain. - Labs,trop, dimer - CXR - CTPE if indicated 06/07/17 00:09 CTPE negative for acute PE. Pt's SOB and chest pressure concerning for lupus flare up. Will initiate steroids and admit for further eval and treatment. <Alexandre Palma - Last Filed: 06/07/17 00:09> - Medical Decision Making 06/06/17 23:[address] Norah Lopez. [phone] <Claritza Johnson - Last Filed: 06/07/17 00:24> *DC/Admit/Observation/Transfer - Attestations Physician Attestion: 06/07/17 00:11 I, Dr. Alexandre Palma MD, attest that this document has been prepared under my direction and personally reviewed by me in its entirety. I further attest, that it accurately reflects all work, treatment, procedures and medical decision -making performed by me. <Alexandre Palma - Last Filed: 06/07/17 00:09> <Claritza Johnson A - Last Filed: 06/07/17 00:24> Diagnosis at time of Disposition: Chest pain Qualifiers: Chest pain type: chest pain on breathing Qualified Code(s): R07.1 - Chest pain on breathing - Referrals Referrals: Eric Gonzalez MD [Primary Care Provider] -
[2017-06-06 21:17] LABS: BASOPHIL 0.9 % (0-2.0); EOSINOPHIL 0.1 % (0-4.5); MCH 27.5 pg (25.7-33.7); MCHC 32.3 g/dl (32.0-36.0); MEAN CELL VOLUME 85.3 fl (80-96); MEAN PLT VOLUME 9.4 fl (7.5-11.1); NEUTROPHILS 84.8 % (42.8-82.8); PLATELET COUNT 245 K/MM3 (134-434); RDW 15.1 % (11.6-15.6); WHITE BLOOD COUNT 6.1 K/mm3 (4.0-10.0)
[2017-06-06 21:40] LABS: INR 1.2 (0.82-1.09); PROTHROMBIN TIME (PATIENT) 13.2 SEC (9.98-11.88)
[2017-06-06 21:43] LABS: ACTIVATED PTT 31.8 SECONDS (26.9-34.4)
[2017-06-06 21:49] LABS: ALBUMIN 3.5 g/dl (3.4-5.0); ALK PHOS 75 U/L (45-117); ANION GAP 7 (8-16); BILIRUBIN,TOTAL 0.3 mg/dL (0.2-1.0); CALCIUM 9.1 mg/dL (8.5-10.1); CO2 26 mmol/L (21-32); GLUCOSE,RANDOM 81 mg/dL (74-106); SGOT/AST 28 U/L (15-37); SGPT/ALT 18 U/L (12-78); TOT PROT 8.5 g/dl (6.4-8.2)
[2017-06-06 21:50] LABS: CPK 264 IU/L (26-192)
[2017-06-06 21:51] LABS: TROPONIN I < 0.02 ng/ml (0.00-0.05)
[2017-06-06 22:01] LABS: VENOUS BLOOD GAS HCO3 25.8 meq/L (19-25); VENOUS PH 7.36 (7.32-7.42)
[2017-06-07] MEDS ORDERED: predniSONE 20 MG TABLET (UD) PO ONE (00:02)
[2017-06-07] MEDS ORDERED: predniSONE 20 MG TABLET (UD) ONE (00:20)
[2017-06-07] MEDS ORDERED: methylPREDNISolone NA SUCC 125 MG/2 ML VIAL IVPB ONE (00:24)
[2017-06-07] MEDS ORDERED: methylPREDNISolone NA SUCC 125 MG/2 ML VIAL ONE (00:29)
[2017-06-07] MEDS ORDERED: METHOTREXATE 2.5 MG TABLET PO SCH (01:45)
[2017-06-07] MEDS: methylPREDNISolone NA SUCC 40 MG/1 ML VIAL IVPB SCH ×3 (02:58→17:08)
--- NOTE | 2017-06-07 08:45 | CON.CARD ---
Consult Consult Specialty:: Cardiology Referred by:: ER Reason for Consultation:: chest pain and sob - History of Present Illness Chief Complaint: chest pain and sob History of Present Illness: 52 year old woman h/o SLE, h/o pericardial effusion admitted with c/o sob and pleurtic chest pain as well as recent weight loss. Recently seen by cardiology in office 06/03/17 ETT done showed no ischemia. pericardial effusion not seen on recent echo in office. pt seen and examined in the er in nad. states the chest tightness occurs with deep inspiration. notes her sob is worse from her chronic soares. no pnd, orthopnea, or Le edema. no lightheadedness dizziness, syncope, or near syncope. - History Source History Provided By: Patient, Medical Record Limitations to Obtaining History: No Limitations - Past Medical History Cardio/Vascular: Yes: HTN, Other (h/o pericardial effusion) Rheumatology: Yes: Lupus - Alcohol/Substance Use Hx Alcohol Use: No - Smoking History Smoking history: Never smoked Have you smoked in the past 12 months: No Aproximately how many cigarettes per day: 0 If you are a former smoker, when did you quit?: 10YRS AGO - Social History ADL: Independent History of Recent Travel: No Home Medications - Allergies Allergies/Adverse Reactions: Allergies Allergy/AdvReac Type Severity Reaction Status Date / Time No Known Drug Allergies Allergy Verified 06/06/17 20:05 NSAIDS (Non-Steroidal AdvReac Unknown Verified 06/06/17 20:05 Anti-Inflamma - Home Medications Home Medications: Ambulatory Orders Acetaminophen [Tylenol .Regular Strength -] 650 mg PO Q4H PRN #30 tablet Hydroxychloroquine So4 [Plaquenil -] 200 mg PO DAILY 03/23/16 Losartan Potassium [Cozaar -] 50 mg PO DAILY 03/23/16 Methotrexate [Mexate -] 6 mg PO Q7D 03/23/16 Folic Acid 2 mg PO DAILY 12/01/16 Family Disease History - Family Disease History Family History: Denies Review of Systems - Review of Systems Constitutional: reports: Malaise, Unintentional Wgt. Loss, Weakness. denies: No Symptoms, Chills, Diaphoresis, Fever, Lethargy, Loss of Appetite, Night Sweats, Other Eyes: denies: No Symptoms, Blind Spots, Blurred Vision, Double Vision, Eye Pain , Floaters, Photophobia, Recent Change in Vision, Other HENT: denies: No Symptoms, Difficult Swallowing, Ear Discharge, Ear Pain, Epistaxis, Gingival Bleeding, Hearing Loss, Mouth Swelling, Nasal Congestion, Ocular Prosthesis, Throat Pain, Toothache, Ringing in Ears, Other Neck: denies: No Symptoms, Decreased ROM, Lumps, Pain on Movement, Stiffness, Swollen Glands, Tenderness, Other Cardiovascular: reports: Chest Pain, Shortness of Breath. denies: No Symptoms, Edema, Palpitations, Other Respiratory: reports: Exercise Intolerance, SOB, SOB on Exertion. denies: No Symptoms, Cough, Hemoptysis, Orthopnea, PND, Snoring, Wheezing, Other Gastrointestinal: denies: No Symptoms, Abdominal Pain, Bloating, Constipation, Diarrhea, Dysphagia, Indigestion, Melena, Nausea, Rectal Bleeding, Vomiting, Vomiting Blood, Other Genitourinary: denies: No Symptoms, Burning, Discharge, Dysuria, Flank Pain, Frequency, Hematuria, Incontinence, Lesions, Menses, Pain, Testicular Mass, Testicular Pain, Testicular Swelling, Urgency, Vaginal Bleeding, Other Breasts: denies: No Symptoms Reported, See HPI, Breast Implants, Discharge from Nipple, Lumps, Pain, Skin Changes, Other Musculoskeletal: denies: No Symptoms, Back Pain, Crepitus, Decreased ROM, Extremity Pain, Joint Pain, Joint Swelling, Muscle Pain, Muscle Cramps, Muscle Weakness, Other Integumentary: denies: No Symptoms, Blister, Bruising, Change in Color, Eczema, Erythema, Incision, Lesions, Lump, Pallor, Pruritis, Rash, Wound, Other Neurological: denies: No Symptoms, Change in LOC, Change in Speech, Confusion, Dizziness, Headache, Incoordination, Numbness, Parasthesia, Pre-Existing Deficit , Seizure, Syncope, Tremors, Unsteady Gait, Weakness, Other Endocrine: denies: No Symptoms, Excessive Sweating, Flushing, Increased Hunger, Increased Thirst, Intolerance to Cold, Intolerance to Heat, Unexplained Weight Gain, Unexplained Weight Loss, Other Hematology/Lymphatic: denies: No Symptoms, Easily Bruised, Excessive Bleeding, Swollen Glands, Other Psychiatric: denies: No Symptoms, Altered Sleep Pattern, Anxiety, Depression, Hallucinations, Panic, Paranoia, Suicidal, Other - Risk Factors Known Risk Factors: Yes: Hypertension Vital Signs: Vital Signs Temperature 98.2 F 06/07/17 07:10 Pulse Rate 90 06/07/17 07:10 Respiratory Rate 18 06/07/17 07:10 Blood Pressure 130/63 06/07/17 07:10 O2 Sat by Pulse Oximetry (%) 100 06/07/17 07:10 Constitutional: Yes: Well Nourished, No Distress, Calm Eyes: Yes: WNL, Conjunctiva Clear, EOM Intact, PERRL HENT: Yes: WNL, Atraumatic, Normocephalic Neck: Yes: WNL, Supple, Trachea Midline Respiratory: Yes: WNL, Regular, CTA Bilaterally. No: Rales, Rhonchi, Wheezes Gastrointestinal: Yes: WNL, Normal Bowel Sounds, Soft. No: Distention, Tenderness Renal/: Yes: WNL Cardiovascular: Yes: WNL, Regular Rate and Rhythm. No: Bradycardia, Tachycardia , Pulse Irregular, Gallop, Rub, Varicosities JVD: No Carotid Bruit: No PMI: Non-Displaced Heart Sounds: Yes: S1, S2. No: Split S2, S3, S4, Clicks, Gallop, Rub, Bruit Murmur: No: Systolic Murmur, Diastolic Murmur Musculoskeletal: Yes: WNL Extremities: Yes: WNL Edema: No Peripheral Pulses WNL: Yes Peripheral Pulses: 2+ Left Doralis Pedis, 2+ Right Dorsalis Pedis Integumentary: Yes: WNL Neurological: Yes: WNL, Alert, Oriented, Cran Nerves II-XII Intact ...Motor Strength: WNL Psychiatric: Yes: WNL, Alert, Oriented - Other Data Labs, Other Data: INR, PTT INR 1.20 (0.82-1.09) H 06/06/17 21:05 Echo: Report Reviewed Imaging - Results Chest X-ray: Report Reviewed, Image Reviewed EKG: Report Reviewed, Image Reviewed Other: Report Reviewed, Image Reviewed Assessment/Plan 52 year old woman h/o SLE, h/o pericardial effusion admitted with c/o sob and pleurtic chest pain as well as recent weight loss. Recently seen by cardiology in office 06/03/17 ETT done showed no ischemia. pericardial effusion not seen on recent echo in office. pt seen and examined in the er in nad. states the chest tightness occurs with deep inspiration. notes her sob is worse from her chronic soares. no pnd, orthopnea, or Le edema. no lightheadedness dizziness, syncope, or near syncope. Chest pain-pleuritic/Dyspnea -no sign of decompensated CHF -pericardial effusion not seen on recent echo in office -concern for lupus flair -f/up echo done this am -cta chest showed no PE, no pneurmonia -would obtain a rheum evaluation for SLE and consider pulmonary evaluation -ETT done in office last week showed no ischemia -cardiac enzymes wnl x1, would check 2nd set -no additional ischemic work up needed at this point HTN -resume home medical regimen
[2017-06-07] MEDS ORDERED: HYDROXYCHLOROQUINE SO4 200 MG TABLET (FP) PO SCH (10:00)
[2017-06-07] MEDS: FOLIC ACID 1 MG TABLET (FP) PO SCH (11:03)
[2017-06-07] MEDS: LOSARTAN POTASSIUM 50 MG TABLET (FP) PO SCH (11:03)
[2017-06-07] MEDS: HEPARIN NA (PORCINE) 5,000 UNITS/ML 1ML VIAL SQ SCH ×2 (11:03→21:20)
--- NOTE | 2017-06-07 13:50 | EKG ---
Test Reason : Blood Pressure : / mmHG Vent. Rate : 079 BPM Atrial Rate : 079 BPM P-R Int : 140 ms QRS Dur : 076 ms QT Int : 406 ms P-R-T Axes : 068 -43 038 degrees QTc Int : 465 ms NORMAL SINUS RHYTHM ATRIAL ABNORMALITY LEFT ANTERIOR FASCICULAR BLOCK ABNORMAL ECG WHEN COMPARED WITH ECG OF 23-MAR-2016 13:49, PREMATURE ATRIAL COMPLEXES ARE NO LONGER PRESENT NONSPECIFIC T WAVE ABNORMALITY NO LONGER EVIDENT IN ANTERIOR LEADS REPEAT EKG IF CLINICALLY INDICATED Confirmed by SELENE RIVERA MD ([id number]) on 06/07/2017 1:50:13 PM Referred By: Confirmed By:SELENE RIVERA MD
--- NOTE | 2017-06-07 22:11 | HP ---
Admitting History and Physical - Admission History of Present Illness: Pt is a 52 y/o female with PMH significant for SLE. Pt presented to the ED with SOB and chest tightness for 2 days. Patient reports that her SOB is worse when lying down and her chest tightness is worsened on deep breath. She reports similar symptoms multiple times in the past, often in the context of lupus flares. However, she reports that last time she presented to the ED with these symptoms she had pneumonia. She states her SOB and chest tightness feels more like a lupus flare up. Pt had a cta chest wc was negative for PE. Pt also recently has seen her network associate who did a w/u wc was negative for chest pain. - Past Medical History Cardiovascular: Yes: HTN, Other (h/o pericardial effusion) Rheumatology: Yes: Lupus - Smoking History Smoking history: Never smoked Have you smoked in the past 12 months: No Aproximately how many cigarettes per day: 0 If you are a former smoker, when did you quit?: 10YRS AGO - Alcohol/Substance Use Hx Alcohol Use: No - Social History ADL: Independent History of Recent Travel: No Home Medications - Allergies Allergies/Adverse Reactions: Allergies Allergy/AdvReac Type Severity Reaction Status Date / Time No Known Drug Allergies Allergy Verified 06/06/17 20:05 NSAIDS (Non-Steroidal AdvReac Unknown Verified 06/06/17 20:05 Anti-Inflamma - Home Medications Home Medications: Ambulatory Orders Acetaminophen [Tylenol .Regular Strength -] 650 mg PO Q4H PRN #30 tablet Hydroxychloroquine So4 [Plaquenil -] 400 mg PO DAILY 03/23/16 Losartan Potassium [Cozaar -] 50 mg PO DAILY 03/23/16 Methotrexate [Mexate -] 6 mg PO Q7D 03/23/16 Folic Acid 2 mg PO DAILY 12/01/16 Family Disease History - Family Disease History Family History: Unremarkable Review of Systems - Review of Systems Constitutional: reports: No Symptoms HENT: reports: No Symptoms Neck: reports: No Symptoms Cardiovascular: reports: Chest Pain, Shortness of Breath Respiratory: reports: SOB Gastrointestinal: reports: No Symptoms Physical Examination Vital Signs: Vital Signs Temperature 98.6 F 06/07/17 19:03 Pulse Rate 77 06/07/17 19:03 Respiratory Rate 20 06/07/17 19:03 Blood Pressure 128/76 06/07/17 19:03 O2 Sat by Pulse Oximetry (%) 100 06/07/17 09:07 Constitutional: Yes: Well Nourished HENT: Yes: WNL Neck: Yes: WNL, Supple Cardiovascular: Yes: WNL, Regular Rate and Rhythm Respiratory: Yes: WNL, Regular, CTA Bilaterally Gastrointestinal: Yes: WNL, Normal Bowel Sounds, Soft Musculoskeletal: Yes: WNL Extremities: Yes: WNL Edema: No Neurological: Yes: WNL, Alert, Oriented ...Motor Strength: WNL Problem List - Problems (1) Chest pain Assessment/Plan: ?muscular skeletal in origin due to SLE Cardio consult noted Code(s): R07.9 - CHEST PAIN, UNSPECIFIED Qualifiers: Chest pain type: chest pain on breathing Qualified Code(s): R07.1 - Chest pain on breathing; R07.81 - Pleurodynia (2) Shortness of breath Assessment/Plan: Pulmonary consult SLE flare? CTA chest unremarkable Code(s): R06.02 - SHORTNESS OF BREATH (3) Lupus Assessment/Plan: Lupus flare Cont IV solumedrol Rheum consult Cont plaquenil/mtx Code(s): M32.9 - SYSTEMIC LUPUS ERYTHEMATOSUS, UNSPECIFIED (4) HTN (hypertension) Assessment/Plan: BP stable Cont meds Code(s): I10 - ESSENTIAL (PRIMARY) HYPERTENSION
[2017-06-08] MEDS: methylPREDNISolone NA SUCC 40 MG/1 ML VIAL IVPB SCH ×3 (01:26→18:34)
[2017-06-08] MEDS ORDERED: morphine CARPU-JECT 4 MG/1 ML DISP.SYRIN IVPUSH PRN (02:09)
[2017-06-08 08:07] LABS: COMPLEMENT C3 87 mg/dL (82-167); COMPLEMENT C4 13 mg/dL (14-44)
[2017-06-08 08:41] LABS: BASOPHIL 0.1 % (0-2.0); MCH 26.8 pg (25.7-33.7); MCHC 31.7 g/dl (32.0-36.0); MEAN CELL VOLUME 84.4 fl (80-96); MEAN PLT VOLUME 9.1 fl (7.5-11.1); NEUTROPHILS 94.9 % (42.8-82.8); PLATELET COUNT 263 K/MM3 (134-434); WHITE BLOOD COUNT 11.3 K/mm3 (4.0-10.0)
--- NOTE | 2017-06-08 08:54 | PN ---
Progress Note, Physician Chief Complaint: feeling better History of Present Illness: on IV steroids - Current Medication List Current Medications: Active Medications Acetaminophen (Tylenol -) 650 mg PO Q4H PRN PRN Reason: FEVER OR PAIN Folic Acid (Folic Acid -) 2 mg PO DAILY [facility] Last Admin: 06/07/17 11:03 Dose: 2 mg Heparin Sodium (Porcine) (Heparin -) 5,000 unit SQ BID [facility] Last Admin: 06/07/17 21:20 Dose: 5,000 unit Hydroxychloroquine Sulfate (Plaquenil -) 400 mg PO DAILY [facility] Losartan Potassium (Cozaar -) 50 mg PO DAILY [facility] Last Admin: 06/07/17 11:03 Dose: 50 mg Methotrexate (Mexate -) 15 mg PO Sanchez@10 [facility] Methylprednisolone Sodium Succinate (Solu-Medrol -) 40 mg IVPB Q8H-IV [facility] Last Admin: 06/08/17 01:26 Dose: 40 mg Morphine Sulfate (Morphine Injection -) 2 mg IVPUSH Q6H PRN PRN Reason: PAIN - Objective Vital Signs: Vital Signs Temperature 97.8 F 06/08/17 08:00 Pulse Rate 89 06/08/17 08:00 Respiratory Rate 18 06/08/17 08:00 Blood Pressure 138/53 06/08/17 08:00 O2 Sat by Pulse Oximetry (%) 100 06/07/17 21:00 Constitutional: Yes: No Distress Eyes: Yes: Conjunctiva Clear Cardiovascular: Yes: Regular Rate and Rhythm Respiratory: Yes: CTA Bilaterally Gastrointestinal: Yes: Soft (nontender) Edema: No Neurological: Yes: Alert, Oriented Labs: CBC, BMP 06/08/17 08:24 INR, PTT INR 1.20 (0.82-1.09) H 06/06/17 21:05 Laboratory Tests 06/06/17 06/06/17 06/06/17 21:05 21:05 21:05 WBC Hgb Plt Count D-Dimer 2197 H Troponin I < 0.02 C-Reactive Protein 3.1 H D Complement C4 06/06/17 06/08/17 21:05 08:24 WBC 11.3 H D Hgb 9.7 L Plt Count 263 D-Dimer Troponin I C-Reactive Protein Complement C4 13 L Assessment/Plan 52 year old woman h/o SLE, h/o pericardial effusion admitted with c/o sob and pleurtic chest pain as well as recent weight loss. Recently seen by cardiology in office 06/03/17 ETT done showed no ischemia. pericardial effusion not seen on recent echo in office. w/ CTA showing recurrent pericardial effusion. Chest pain-pleuritic/Dyspnea -no sign of decompensated CHF -pericardial effusion on CT -concern for lupus flair -f/up echo -would obtain a rheum evaluation for SLE and consider pulmonary evaluation -ETT done in office last week showed no ischemia -no additional ischemic work up needed at this point HTN -resume home medical regimen
[2017-06-08 09:05] LABS: ALBUMIN 3.2 g/dl (3.4-5.0); ANION GAP 9 (8-16); CALCIUM 9.2 mg/dL (8.5-10.1); CO2 25 mmol/L (21-32); GLUCOSE,RANDOM 132 mg/dL (74-106); SGOT/AST 20 U/L (15-37); SGPT/ALT 20 U/L (12-78)
[2017-06-08 09:07] LABS: ALK PHOS 78 U/L (45-117); BILIRUBIN,TOTAL 0.3 mg/dL (0.2-1.0); CREATININE 0.7 mg/dL (0.55-1.02); TOT PROT 8.4 g/dl (6.4-8.2)
[2017-06-08] MEDS ORDERED: PT OWN MED DRAWER 7, Y5N ONE (10:12)
[2017-06-08] MEDS: FOLIC ACID 1 MG TABLET (FP) PO SCH (10:14)
[2017-06-08] MEDS: HYDROXYCHLOROQUINE SO4 200 MG TABLET (FP) PO SCH (10:14)
[2017-06-08] MEDS: LOSARTAN POTASSIUM 50 MG TABLET (FP) PO SCH (10:14)
[2017-06-08] MEDS: HEPARIN NA (PORCINE) 5,000 UNITS/ML 1ML VIAL SQ SCH ×2 (10:15→21:09)
[2017-06-08 10:43] LABS: CPK 155 IU/L (26-192); TROPONIN I < 0.02 ng/ml (0.00-0.05)
[2017-06-08] MEDS: ACETAMINOPHEN 325 MG TABLET (FP) PO PRN (12:27)
--- NOTE | 2017-06-08 14:12 | PN ---
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 DR DELATORRE Problem List - Problems (1) Chest pain Code(s): R07.9 - CHEST PAIN, UNSPECIFIED Qualifiers: Chest pain type: chest pain on breathing Qualified Code(s): R07.1 - Chest pain on breathing; R07.81 - Pleurodynia (2) HTN (hypertension) Code(s): I10 - ESSENTIAL (PRIMARY) HYPERTENSION (3) Chest pain in adult Code(s): R07.9 - CHEST PAIN, UNSPECIFIED (4) Lupus Code(s): M32.9 - SYSTEMIC LUPUS ERYTHEMATOSUS, UNSPECIFIED (5) Pleuritic chest pain Code(s): R07.81 - PLEURODYNIA (6) Shortness of breath Code(s): R06.02 - SHORTNESS OF BREATH (7) Pericardial effusion Code(s): I31.3 - PERICARDIAL EFFUSION (NONINFLAMMATORY)
--- NOTE | 2017-06-08 17:29 | CONS ---
DATE OF CONSULTATION: 06/08/2017 PULMONARY CONSULTATION REFERRING PHYSICIAN: Norah Lopez M.D. HISTORY OF PRESENT ILLNESS: The patient is a 52-year-old black female, past medical history of lupus approximately 10 years currently maintained on Plaquenil and methotrexate. Recently tapered off prednisone. History of pericardial effusion. Admitted to [facility] with complaint of a few day history of pleuritic chest pain left side, as well as recent weight loss. Patient apparently was recently seen by cardiology, had exercise stress test, which was done, which revealed no evidence of ischemia. She presented to the emergency department. In the ER, she had CTA performed, which revealed no evidence of pulmonary embolism. There was a trace pericardial effusion. The patient also has been complaining of some shortness of breath. On admission, she was started on IV with good clinical response. She denies any fevers or night sweats, denies hemoptysis, denies any nausea, vomiting, or diaphoresis. She is a nonsmoker. There is no history of occupational exposure to chemicals or fumes. PAST MEDICAL HISTORY: Again includes SLE and pericardial effusion. SOCIAL HISTORY: Nonsmoker. No occupational exposures. CURRENT MEDICATIONS: Include Solu-Medrol 40 q.8, losartan, Cozaar, heparin, Plaquenil, methotrexate, folic acid. REVIEW OF SYSTEMS: Positive chest pain. Positive shortness of breath. No fever, no chills, no hemoptysis, no cough, no wheezing, no abdominal pain, no lower extremity edema. Positive weight loss. PHYSICAL EXAMINATION: General: The patient is a well-developed, well-nourished female, awake, alert, in no acute distress. She is currently afebrile. Vital signs: Blood pressure 138/53, respiratory rate 18, O2 saturation is 98% on room air. HEENT: Head is normocephalic, atraumatic. Neck: Supple. Heart: Regular. S1, S2. Chest: Clear. Abdomen: Soft. Bowel sounds positive. Extremities: No cyanosis, edema. LABORATORY: WBC is 11.3, hemoglobin 9.7, hematocrit 30.7, platelet count of 263,000. INR is 1.2, D-dimer 2197. BUN is 16, creatinine 0.7. Venous blood gas: pH of 7.36, pCO2 of 46, and pO2 of 22, bicarbonate of 25. Chest CTA reveals no infiltrates, no effusions. A small pericardial effusion. IMPRESSION: 1. Chest pain, most likely secondary to lupus pleurisy. 2. Pericardial effusion. 3. Dyspnea most likely secondary to splinting, secondary to chest pain. 4. Weight loss. PLAN: Continue steroids, supplemental O2 p.r.n., continue methotrexate, Plaquenil, analgesics. Rheumatology evaluation. ADRIANA DELATORRE M.D. CHUCK/[id number]
--- NOTE | 2017-06-08 23:22 | PN ---
Progress Note, Physician History of Present Illness: Pt is feeling better - Current Medication List Current Medications: Active Medications Acetaminophen (Tylenol -) 650 mg PO Q4H PRN PRN Reason: FEVER OR PAIN Last Admin: 06/08/17 12:27 Dose: 650 mg Folic Acid (Folic Acid -) 2 mg PO DAILY [facility] Last Admin: 06/08/17 10:14 Dose: 2 mg Heparin Sodium (Porcine) (Heparin -) 5,000 unit SQ BID [facility] Last Admin: 06/08/17 21:09 Dose: 5,000 unit Hydroxychloroquine Sulfate (Plaquenil -) 400 mg PO DAILY [facility] Last Admin: 06/08/17 10:14 Dose: 400 mg Losartan Potassium (Cozaar -) 50 mg PO DAILY [facility] Last Admin: 06/08/17 10:14 Dose: 50 mg Methotrexate (Mexate -) 15 mg PO Sanchez@10 [facility] Methylprednisolone Sodium Succinate (Solu-Medrol -) 40 mg IVPB DAILY [facility] Morphine Sulfate (Morphine Injection -) 2 mg IVPUSH Q6H PRN PRN Reason: PAIN - Objective Vital Signs: Vital Signs Temperature 98.3 F 06/08/17 18:00 Pulse Rate 83 06/08/17 18:00 Respiratory Rate 17 06/08/17 20:06 Blood Pressure 152/84 06/08/17 18:00 O2 Sat by Pulse Oximetry (%) 98 06/08/17 20:06 HENT: Yes: WNL Neck: Yes: WNL, Supple Cardiovascular: Yes: WNL, Regular Rate and Rhythm Respiratory: Yes: WNL, Regular, CTA Bilaterally Gastrointestinal: Yes: WNL, Normal Bowel Sounds Labs: CBC, BMP 06/08/17 08:24 06/08/17 08:24 INR, PTT INR 1.20 (0.82-1.09) H 06/06/17 21:05 Problem List - Problems (1) Chest pain Assessment/Plan: ?muscular skeletal in origin due to SLE Cardio consult noted Code(s): R07.9 - CHEST PAIN, UNSPECIFIED Qualifiers: Chest pain type: chest pain on breathing Qualified Code(s): R07.1 - Chest pain on breathing; R07.81 - Pleurodynia (2) Shortness of breath Assessment/Plan: Pulmonary consult SLE flare? CTA chest unremarkable Code(s): R06.02 - SHORTNESS OF BREATH (3) Lupus Assessment/Plan: Lupus flare Cont plaquenil/mtx Change solumedrol to daily DC planning for am Code(s): M32.9 - SYSTEMIC LUPUS ERYTHEMATOSUS, UNSPECIFIED (4) HTN (hypertension) Code(s): I10 - ESSENTIAL (PRIMARY) HYPERTENSION
[2017-06-09] MEDS: HYDROXYCHLOROQUINE SO4 200 MG TABLET (FP) PO SCH (09:37)
[2017-06-09] MEDS: HEPARIN NA (PORCINE) 5,000 UNITS/ML 1ML VIAL SQ SCH (09:38)
[2017-06-09] MEDS: FOLIC ACID 1 MG TABLET (FP) PO SCH (09:38)
[2017-06-09] MEDS: LOSARTAN POTASSIUM 50 MG TABLET (FP) PO SCH (09:38)
[2017-06-09] MEDS: ACETAMINOPHEN 325 MG TABLET (FP) PO PRN (09:42)
[2017-06-09] MEDS ORDERED: methylPREDNISolone NA SUCC 40 MG/1 ML VIAL IVPB SCH ×2 (10:00→22:00)
[2017-06-09 14:10] VITALS: BP 139/79; PULSE 67; TEMP 97.5
[2017-06-12] MEDS ORDERED: METHOTREXATE 2.5 MG TABLET PO SCH (10:00)
== END 2017-06-09 14:40 | disposition home or self-care (01) | DRG 313 ==
LOC: JER 19:52 → JERBED 06-07 00:24 → UNDOADMIN 06-07 00:40 → JERBED 06-07 00:40 → J6S 06-07 09:45
PROVIDERS: ADMIT Internal Medicine; ATTEND Internal Medicine
DX: R07.89 Other chest pain (principal); M32.9 Systemic lupus erythematosus, unspecified; R06.09 Other forms of dyspnea; D64.9 Anemia, unspecified; Z87.891 Personal history of nicotine dependence; I10 Essential (primary) hypertension
CPT/HCPCS: 36415; 71020-TC; 71275-TC; 80053; 82553; 82803; 83880; 84484; 85025; 85379; 85610; 85651; 85730; 86140; 86160; 86225; 93005; 93010; 93306-TC; 99285-25; J1644

== ENCOUNTER 2018-08-14 14:09 | Inpatient (IN) | payer OTHER ==
--- NOTE | 2018-08-14 14:26 | PDOC ---
Rapid Medical Evaluation Chief Complaint: Back Pain Time Seen by Provider: 08/14/18 14:23 Medical Evaluation: Allergies Allergy/AdvReac Type Severity Reaction Status Date / Time NSAIDS (Non-Steroidal AdvReac Unknown Verified 08/14/18 14:22 Anti-Inflamma 08/14/18 14:23 I have performed a brief in person evaluation of this patient. The patient presents with a chief complaint of: Back pain, diarrhea and "lightheadness." Pertinent PE: Skin: Clear Lungs: Clear Heart: RRR Abd: Nontender MS: No pain upon palpation to the cervical, thoracic or lumbar spine Neuro: Alert and oriented Psych: Appropriate affect I have ordered the following: Nothing at this time. The patient will proceed to: pt will go to the main ED for further evaluation. Discharge Disposition - Diagnosis Back pain Qualifiers: Back pain location: low back pain Chronicity: acute Back pain laterality: bilateral Sciatica presence: without sciatica Qualified Code(s): M54.5 - Low back pain - Referrals Referrals: Eric Gonzalez MD [Primary Care Provider] - - Patient Instructions - Post Discharge Activity
--- NOTE | 2018-08-14 15:09 | PDOC ---
Attending Attestation - Physicial Exam PE: 08/14/18 18:21 Pt presents to the ED complaining of lightheadness and diarrhea. History of lupus on plaquenil. Tolerating PO without nausea or vomiting. Denies chest pain or shortness of breath. Will check labs to evaluate for electrolyte disturbance, ACS, likely discharge home if negative. <Dawna Alejandra - Last Filed: 08/14/18 18:20> - Resident Resident Name: YvetteKristen - ED Attending Attestation I have performed the following: I have examined & evaluated the patient, The case was reviewed & discussed with the resident, I agree w/resident's findings & plan, Exceptions are as noted - HPI HPI: 08/14/18 15:25 The patient is a 53 year old female, with a significant past medical history of Lupus (on Prednisone), who presents to the emergency department with, lightheadedness, back pain, shortness of breath, and diarrhea. As per patient, his lightheadedness onset this morning while on her way to the ER. Her diarrhea is noted to be acute on chronic, she notes intermittent diarrhea for 1 month worsening lately 3 nonbloody BM yesterday (none today). The patient endorses acute on chronic back pain and describes her shortness of breath similar to her baseline shortness of breath with movement. She denies recent fevers, chills, headache or dizziness. She denies recent nausea or vomiting. She denies recent dysuria, frequency, urgency or hematuria. She denies recent chest pain. Allergies: NSAID Primary Care Physician: Dr. Eric Gonzalez - Medical Decision Making 08/14/18 7:30pm Call placed to Dr. Lopez's answering service, admitting doctor for Dr. Stepan Gonzalez , awaiting call back. <Kayode Nassar - Last Filed: 08/14/18 19:42> Attestations - Attestations 08/14/18 15:26 Documentation prepared by Kayode Nassar, acting as medical coding specialist for Dawna Alejandra MD. <Kayode Nassar - Last Filed: 08/14/18 19:42>
--- NOTE | 2018-08-14 15:13 | PDOC ---
History of Present Illness - General Chief Complaint: Diarrhea Stated Complaint: Back Pain Time Seen by Provider: 08/14/18 14:23 History Source: Patient - History of Present Illness Initial Comments: 08/14/18 18:06 The patient is a 53 year old female with a PMH of SLE (on Prednisone QD and Hydrocortisone) who presents to the ED c/o lightheadedness and diarrhea. She first noticed the lightheadedness this morning when she was leaving the house to go to work. Denies any chest pain, palpitations. Patient does endorse shortness of breath but states she is short of breath at baseline 2/2 to her SLE and "chest infections." Patient states the diarrhea has been on and off for 1 year but was particularly severe the last 3 days with 3 large watery bowel movement yesterday. Patient notes that she was prescribed an antibiotic 1 week previous -- patient cannot recall the name of the antibiotic or for what it was prescribed, possibly a UTI. Patient denies abdominal pain, nausea/vomiting, dysuria/hematuria, recent travel or sick contacts. Allergy: NSAIDS Surgery: hysterectomy Social: denies toxic habits PMD: Dr. Eric Gonzalez M.D. As per EMR, patient admitted to our facility in 2017 for chest pain at which time CT showed pericardial effusion, likely 2/2 to SLE flair. Past History - Past Medical History Allergies/Adverse Reactions: Allergies Allergy/AdvReac Type Severity Reaction Status Date / Time NSAIDS (Non-Steroidal AdvReac Unknown Verified 08/14/18 14:22 Anti-Inflamma Home Medications: Ambulatory Orders Acetaminophen [Tylenol .Regular Strength -] 650 mg PO Q4H PRN #30 tablet Hydroxychloroquine So4 [Plaquenil -] 400 mg PO DAILY 03/23/16 Losartan Potassium [Cozaar -] 50 mg PO DAILY 03/23/16 Anemia: Yes Asthma: No Cancer: No Cardiac Disorders: Yes (endocarditis) CVA: No COPD: No CHF: No Dementia: No Diabetes: No GI Disorders: No Disorders: No HTN: No Hypercholesterolemia: No Liver Disease: No Seizures: No Thyroid Disease: No Other medical history: LUPUS - Surgical History Abdominal Surgery: No Appendectomy: No Cardiac Surgery: No Cholecystectomy: No Lung Surgery: No Neurologic Surgery: No - Immunization History Immunization Up to Date: Yes - Suicide/Smoking/Psychosocial Hx Smoking Status: Yes Smoking History: Never smoked Have you smoked in the past 12 months: No Number of Cigarettes Smoked Daily: 0 If you are a former smoker, when did you quit?: 10YRS AGO Information on smoking cessation initiated: No Hx Alcohol Use: No Drug/Substance Use Hx: No Substance Use Type: None Hx Substance Use Treatment: No Review of Systems - Review of Systems Constitutional: No: Chills, Fever HEENTM: No: Blurred Vision, Double Vision Respiratory: Yes: Shortness of Breath. No: Cough, Wheezing Cardiac (ROS): Yes: Lightheadedness. No: Chest Pain, Palpitations, Syncope ABD/GI: No: Constipated, Diarrhea, Nausea, Vomiting : No: Burning, Dysuria, Frequency, Urgency *Physical Exam - Vital Signs Last Vital Signs Temp Pulse Resp BP Pulse Ox 98.9 F 71 18 131/66 100 08/14/18 14:22 08/14/18 14:22 08/14/18 14:22 08/14/18 14:22 08/14/18 14:22 - Physical Exam General Appearance: Yes: Nourished, Appropriately Dressed HEENT: positive: EOMI, Normal Voice, Hearing Grossly Normal Neck: positive: Trachea midline, Supple Respiratory/Chest: positive: Lungs Clear, Normal Breath Sounds Cardiovascular: positive: S1, S2, Other (Hypotensive 106/52) Vascular Pulses: Dorsalis-Pedis (R): 2+, Doralis-Pedis (L): 2+ Gastrointestinal/Abdominal: positive: Normal Bowel Sounds, Soft Musculoskeletal: negative: CVA Tenderness (R), CVA Tenderness (L) Extremity: positive: Normal Capillary Refill, Normal Inspection Integumentary: positive: Normal Color, Dry, Warm Neurologic: positive: Fully Oriented, Alert Heart Score/ECG Review - History History: Slightly suspicious - Age Age: 45-65 - ECG Impressions Comment:: 08/14/18 21:03 ECG shows SR with HR 70, L anterior fasicular block not present on prior ECG dated 06/06/17 ED Treatment Course - LABORATORY CBC & Chemistry Diagram: 08/14/18 16:25 08/14/18 18:25 Medical Decision Making - Medical Decision Making 08/14/18 18:14 53 year old female with lightheadedness + diarrhea. H/o recent abx use. Notes multiple daily watery, non-bloody bowel movements and limited PO intake. Hypotensive other VS unremarkable. Frontal diagnosis: lightheadedness 2/2 to diarrhea 2/2 to antibiotic use, gastritis, less likely ACS with lightheadedness as anginal equivalent. Will obtain basic labs, Troponin, ECG. Troponin elevated @ 0.28 (negative in 2017, 1.51 in 2014) ECG documented in ECG section of EMR - new Left Anterior Fasciular Block Will admit patient for further cardiac evaluation. 08/14/18 21:[address] Lopez VS stable *DC/Admit/Observation/Transfer Diagnosis at time of Disposition: Back pain Qualifiers: Back pain location: low back pain Chronicity: acute Back pain laterality: bilateral Sciatica presence: without sciatica Qualified Code(s): M54.5 - Low back pain - Referrals Referrals: Eric Gonzalez MD [Primary Care Provider] - - Patient Instructions - Post Discharge Activity
[2018-08-14] MEDS ORDERED: SODIUM CHLORIDE 0.9% 500 ML INFUS.BAG IV ONE (15:27)
[2018-08-14 16:45] LABS: BASO % 0.5 % (0-2.0); EOS % 0.2 % (0-4.5); HEMATOCRIT 36.1 % (32.4-45.2); HEMOGLOBIN 11.7 GM/dL (10.7-15.3); LYMPH % 9.8 % (8-40); MCH 26.7 pg (25.7-33.7); MCHC 32.3 g/dl (32.0-36.0); MEAN CELL VOLUME 82.6 fl (80-96); MEAN PLT VOLUME 9.3 fl (7.5-11.1); MONO % 4.9 % (3.8-10.2); NEUT % 84.6 % (42.8-82.8); PLATELET COUNT 251 K/MM3 (134-434); RBC 4.37 M/mm3 (3.60-5.2); RDW 14.9 % (11.6-15.6); WHITE BLOOD COUNT 6.3 K/mm3 (4.0-10.0)
[2018-08-14] MEDS ORDERED: ACETAMINOPHEN 500 MG TABLET (FP) PO ONE (18:24)
[2018-08-14] MEDS ORDERED: ACETAMINOPHEN 325 MG TABLET (FP) ONE (18:29)
[2018-08-14 19:07] LABS: ALBUMIN 3.3 g/dl (3.4-5.0); ALK PHOS 76 U/L (45-117); ANION GAP 5 MMOL/L (8-16); BILIRUBIN,TOTAL 0.2 mg/dL (0.2-1); BLOOD UREA NITROGEN 13 mg/dL (7-18); CALCIUM 8.8 mg/dL (8.5-10.1); CHLORIDE 112 mmol/L (98-107); CO2 27 mmol/L (21-32); CREATININE 0.7 mg/dL (0.55-1.3); GLUCOSE,RANDOM 64 mg/dL (74-106); POTASSIUM 3.6 mmol/L (3.5-5.1); SGOT/AST 22 U/L (15-37); SGPT/ALT 23 U/L (13-61); SODIUM 144 mmol/L (136-145)
[2018-08-14] MEDS ORDERED: CLOPIDOGREL BISULFATE 300 MG TABLET PO ONE (19:26)
[2018-08-14] MEDS ORDERED: CLOPIDOGREL BISULFATE 300 MG TABLET ONE (20:51)
[2018-08-15] MEDS ORDERED: ACETAMINOPHEN 325 MG TABLET (FP) PO PRN (09:50)
[2018-08-15 11:44] VITALS: BMI 31.4
[2018-08-15 12:41] LABS: BASO % 0.4 % (0-2.0); EOS % 0.3 % (0-4.5); HEMOGLOBIN 10.7 GM/dL (10.7-15.3); MCH 25.8 pg (25.7-33.7); MCHC 31.6 g/dl (32.0-36.0); MEAN CELL VOLUME 81.8 fl (80-96); MEAN PLT VOLUME 8.4 fl (7.5-11.1); MONO % 6.6 % (3.8-10.2); NEUT % 79.7 % (42.8-82.8); PLATELET COUNT 199 K/MM3 (134-434); RBC 4.15 M/mm3 (3.60-5.2); RDW 14.8 % (11.6-15.6); WHITE BLOOD COUNT 5.8 K/mm3 (4.0-10.0)
[2018-08-15] MEDS: LOSARTAN POTASSIUM 50 MG TABLET (FP) PO SCH ×2 (12:41→17:54)
[2018-08-15] MEDS: HEPARIN NA (PORCINE) 5,000 UNITS/ML 1ML VIAL SQ SCH ×2 (12:41→21:06)
[2018-08-15] MEDS: HYDROXYCHLOROQUINE SO4 200 MG TABLET (FP) PO SCH ×2 (12:41→17:54)
--- NOTE | 2018-08-15 12:41 | EKG ---
Test Reason : Blood Pressure : / mmHG Vent. Rate : 055 BPM Atrial Rate : 055 BPM P-R Int : 120 ms QRS Dur : 088 ms QT Int : 478 ms P-R-T Axes : 034 -47 013 degrees QTc Int : 457 ms SINUS BRADYCARDIA LEFT ANTERIOR FASCICULAR BLOCK ABNORMAL ECG Confirmed by MD EARNESTINE, LUIS ARMANDO ([id number]) on 08/15/2018 12:41:05 PM Referred By: Confirmed By:LUIS ARMANDO COLBY MD
[2018-08-15 13:09] LABS: ALK PHOS 74 U/L (45-117); ANION GAP 4 MMOL/L (8-16); BILIRUBIN,TOTAL 0.2 mg/dL (0.2-1); BLOOD UREA NITROGEN 10 mg/dL (7-18); CALCIUM 8.7 mg/dL (8.5-10.1); CHLORIDE 112 mmol/L (98-107); CO2 27 mmol/L (21-32); CREATININE 0.6 mg/dL (0.55-1.3); GLUCOSE,RANDOM 74 mg/dL (74-106); POTASSIUM 3.7 mmol/L (3.5-5.1); SGOT/AST 18 U/L (15-37); SGPT/ALT 22 U/L (13-61); SODIUM 142 mmol/L (136-145); TOT PROT 7.6 g/dl (6.4-8.2)
--- NOTE | 2018-08-15 13:09 | EKG ---
Test Reason : Blood Pressure : / mmHG Vent. Rate : 070 BPM Atrial Rate : 070 BPM P-R Int : 102 ms QRS Dur : 086 ms QT Int : 414 ms P-R-T Axes : 000 -46 -23 degrees QTc Int : 447 ms SINUS RHYTHM WITH SHORT TN WITH PREMATURE SUPRAVENTRICULAR COMPLEXES LEFT ANTERIOR FASCICULAR BLOCK MINIMAL VOLTAGE CRITERIA FOR LVH, MAY BE NORMAL VARIANT NONSPECIFIC T WAVE ABNORMALITY ABNORMAL ECG WHEN COMPARED WITH ECG OF 06-JUN-2017 21:24, PREMATURE SUPRAVENTRICULAR COMPLEXES ARE NOW PRESENT INVERTED T WAVES HAVE REPLACED NONSPECIFIC T WAVE ABNORMALITY IN INFERIOR LEADS NONSPECIFIC T WAVE ABNORMALITY NOW EVIDENT IN ANTEROLATERAL LEADS Confirmed by MD MAGDA, DELTA ([id number]) on 08/15/2018 1:09:10 PM Referred By: Confirmed By:DELTA MAN MD
--- NOTE | 2018-08-15 13:49 | ECHO ---
Name: ROBERT BRISCOE Exam:Adult Echocardiogram Study Date: 08/15/2018 11:36 AM Age: 53 yrs Reason For Study: Chest pain Height: 64 in Weight: 183 lb BSA: 1.9 m2 MMode/2D Measurements & Calculations RVDd: 2.7 cm Ao root diam: 3.1 cm IVSd: 1.2 cm LA dimension: 3.6 cm LVIDd: 5.3 cm ACS: 1.9 cm LVIDs: 3.1 cm LVPWd: 0.88 cm IVSs: 1.4 cm LVPWs: 1.3 cm EDV(Teich): 134.0 ml ESV(Taylor): 38.0 ml EPSS: 1.3 cm Doppler Measurements & Calculations MV E max doni: 71.6 cm/sec Ao V2 max: 126.2 cm/sec MV A max doni: 42.4 cm/sec Ao max P.4 mmHg MV E/A: 1.7 Ao V2 mean: 89.8 cm/sec Ao mean P.7 mmHg Ao V2 VTI: 25.0 cm AI P1/2t: 417.4 msec AI max doni: 423.5 cm/sec MR max doni: 390.9 cm/sec AI max P.7 mmHg MR max P.2 mmHg AI dec slope: 297.2 cm/sec2 TR max doni: 254.3 cm/sec PI end-d doni: 78.7 cm/sec TR max P.9 mmHg Med Peak E' Doni: 6.3 cm/sec Med E/e': 11.5 Lat Peak E' Doni: 12.6 cm/sec Lat E/e': 5.7 Left Ventricle The left ventricular size, thickness and function are normal. LVEF = 60%. Left Ventricular Filling pa ttern is normal for age. Right Ventricle The right ventricle is normal in size and function. Atria Normal left and right atrial size and function. Mitral Valve The mitral valve is normal in structure and function. Tricuspid Valve The tricuspid valve is normal. There is Trace to mild tricuspid regurgitation. Right ventricular syst olic pressure is 32 mmhg. Aortic Valve The aortic valve is normal in structure and function. Pulmonic Valve The pulmonic valve leaflets are thin and pliable; valve motion is normal. Great Vessels The aortic root is not well visualized. Normal aortic arch, descending and ascending aorta. Pericardium/Pleura There is no pericardial effusion. There is no pleural effusion. Interpretation Summary This was essentially a normal study. MD Heavenly Ventura 08/15/2018 01:48 PM
--- NOTE | 2018-08-15 16:35 | HP ---
Admitting History and Physical - Past Medical History Cardiovascular: Yes: HTN, Other (h/o pericardial effusion) ...: No Rheumatology: Yes: Lupus - Smoking History Smoking history: Never smoked Have you smoked in the past 12 months: No Aproximately how many cigarettes per day: 0 If you are a former smoker, when did you quit?: 10YRS AGO - Alcohol/Substance Use Hx Alcohol Use: No - Social History ADL: Independent History of Recent Travel: No Home Medications - Allergies Allergies/Adverse Reactions: Allergies Allergy/AdvReac Type Severity Reaction Status Date / Time NSAIDS (Non-Steroidal AdvReac Unknown Verified 08/14/18 14:22 Anti-Inflamma - Home Medications Home Medications: Ambulatory Orders Acetaminophen [Tylenol .Regular Strength -] 650 mg PO Q4H PRN #30 tablet Hydroxychloroquine So4 [Plaquenil -] 400 mg PO DAILY 03/23/16 Losartan Potassium [Cozaar -] 50 mg PO DAILY 03/23/16 Mycophenolate Mofetil [Cellcept -] 500 mg PO BID 08/15/18 Physical Examination Vital Signs: Vital Signs Temperature 98.0 F 08/15/18 14:00 Pulse Rate 65 08/15/18 14:00 Respiratory Rate 20 08/15/18 10:00 Blood Pressure 102/58 L 08/15/18 14:00 O2 Sat by Pulse Oximetry (%) 99 08/15/18 10:30 Labs: CBC, BMP 08/15/18 12:25 08/15/18 12:25
[2018-08-15] MEDS: LIDOCAINE 5% TOPICAL PATCH TP SCH (17:49)
[2018-08-15] MEDS ORDERED: LIDOCAINE PATCH REMOVAL MC SCH (22:00)
--- NOTE | 2018-08-16 08:55 | CON.CARD ---
Cardiology Consult (text) - Consultation Consultation Note: Cardiology Consult Dictated IMP: SLE Hx of pericarditis Light headedness Diarrhea in setting of recent abx use NSST changes Borderline elevation TnI with normal echocardiogram and no anginal sx Frequent APCs REC: 1. Repeat ECG now 2. ASA 81mg daily 3. Plan for Lexiscan MIBI prior to discharge for further risk stratification, r/ o ischemia.
[2018-08-16] MEDS ORDERED: PT OWN MED DRAWER 7, Y5N ONE ×2 (08:58→09:10)
--- NOTE | 2018-08-16 09:40 | CONS ---
DATE OF CONSULTATION: 08/15/2018 CARDIOLOGY CONSULTATION REFERRING PHYSICIAN: Dr. Norah Lopez REASON FOR CONSULTATION: Abnormal ECG. Patient is a 53-year-old female with a past medical history of lupus and pericardial effusion/pericarditis who presented to the emergency room yesterday for complaints of lightheadedness and diarrhea. She has been on oral antibiotics prescribed by her urologist for approximately 3-4 weeks and began having diarrhea. She denies abdominal pain, fevers, chills. She denies chest pain, shortness of breath, palpitations, syncope. She has been feeling lightheaded for the last few days. PAST MEDICAL HISTORY: As above. 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 She denies allergies to nonsteroidal anti-inflammatories. CURRENT MEDICATIONS: Include acetaminophen 650 mg p.o. q.4 p.r.n., aspirin 81 mg p.o. daily, subcutaneous heparin 5000 units b.i.d. for DVT prophylaxis, hydroxychloroquine 400 mg p.o. daily. She is on a Lidoderm patch daily, losartan 50 mg p.o. daily. FAMILY HISTORY: Negative for early coronary artery disease. SOCIAL HISTORY: Nonsmoker. PHYSICAL EXAMINATION: GENERAL: Alert and oriented, no acute distress. VITAL SIGNS: Afebrile, temperature 98.8, blood pressure 122/68, O2 saturation 99 on room air. Her ECGs have shown sinus rhythm with APCs, left anterior hemiblock, nonspecific ST changes. NECK: No JVD. No bruits. HEART: S1, S2 regular. No murmurs. CHEST: Clear. ABDOMEN: Soft, nontender. EXTREMITIES: No edema. Her echocardiogram yesterday was normal. LABORATORIES: CBC normal. Sodium 142, potassium 3.7. Creatinine 0.6. LFTs normal. CK and troponin trend is as follows: 205, 179, 191; troponin 0.28, 0.12, and 0.08. IMPRESSION: 1. Systemic lupus erythematosus. 2. History of pericarditis. 3. Lightheadedness in setting of diarrhea secondary to possible recent antibiotic use. 4. Nonspecific ST changes. 5. Borderline elevation of cardiac troponin I with normal echocardiogram and no anginal symptoms. 6. Frequent atrial premature complexes. RECOMMENDATIONS: 1. Repeat ECGs have shown no significant progression, no acute changes. 2. Will begin aspirin 81 mg p.o. daily. 3. Will plan for a Lexiscan nuclear stress test tomorrow for further risk stratification to rule out underlying ischemia. Thank you for the consultation. CRAIG HERNANDEZ M.D. [id number]
[2018-08-16] MEDS ORDERED: ASPIRIN 81 MG CHEWABLE TABLETS PO SCH (10:00)
--- NOTE | 2018-08-16 10:28 | EKG ---
Test Reason : Blood Pressure : / mmHG Vent. Rate : 070 BPM Atrial Rate : 070 BPM P-R Int : 000 ms QRS Dur : 084 ms QT Int : 438 ms P-R-T Axes : 000 -53 -16 degrees QTc Int : 473 ms SINUS RHYTHM WITH PREMATURE ATRIAL COMPLEXES LEFT ANTERIOR FASCICULAR BLOCK ABNORMAL ECG WHEN COMPARED WITH ECG OF 14-AUG-2018 23:43, PREMATURE ATRIAL COMPLEXES ARE NOW PRESENT Confirmed by BRIANA SAMUEL, JAN ([id number]) on 08/16/2018 10:28:05 AM Referred By: CRAIG HERNANDEZ Confirmed By:JAN WARREN MD
[2018-08-16] MEDS: LOSARTAN POTASSIUM 50 MG TABLET (FP) PO SCH (10:46)
[2018-08-16] MEDS: LIDOCAINE 5% TOPICAL PATCH TP SCH (10:47)
[2018-08-16] MEDS: HYDROXYCHLOROQUINE SO4 200 MG TABLET (FP) PO SCH (10:47)
[2018-08-16] MEDS: HEPARIN NA (PORCINE) 5,000 UNITS/ML 1ML VIAL SQ SCH (10:56)
[2018-08-16 16:04] VITALS: BP 98/60; PULSE 112; TEMP 98.3
== END 2018-08-16 18:09 | disposition home or self-care (01) | DRG 552 ==
LOC: JER 14:09 → JERBED 21:47 → J4W 08-15 09:44 → OBSVTOIN 08-15 09:50
PROVIDERS: ADMIT Internal Medicine; ATTEND Internal Medicine
DX: M54.5 Low back pain (principal); M32.9 Systemic lupus erythematosus, unspecified; Z87.891 Personal history of nicotine dependence; I44.4 Left anterior fascicular block; R19.7 Diarrhea, unspecified
CPT/HCPCS: 36415; 76700-TC; 80053; 82550; 82553; 84484; 85025; 86140; 87086; 87324; 87449; 93005; 93010; 93306-TC; 99285-25; G0378; J1644

== ENCOUNTER 2019-03-09 19:49 | Emergency (ER) | payer OTHER ==
[2019-03-09] MEDS ORDERED: ACETAMINOPHEN 325 MG TABLET (FP) PO ONE (20:15)
--- NOTE | 2019-03-09 20:15 | PDOC ---
Rapid Medical Evaluation Medical Evaluation: Allergies Allergy/AdvReac Type Severity Reaction Status Date / Time NSAIDS (Non-Steroidal AdvReac Unknown Verified 08/14/18 14:22 Anti-Inflamma I have performed a brief in-person evaluation of this patient. 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 03/09/19 20:10
[2019-03-09 20:16] VITALS: BP 128/75; PULSE 76; TEMP 98.3; BMI 29.7
[2019-03-09] MEDS ORDERED: ACETAMINOPHEN 325 MG TABLET (FP) ONE (20:41)
[2019-03-09] MEDS ORDERED: LIDOCAINE 5% TOPICAL PATCH TP ONE (21:17)
--- NOTE | 2019-03-09 21:17 | PDOC ---
History of Present Illness - General Chief Complaint: Pain Stated Complaint: PAIN Time Seen by Provider: 03/09/19 20:10 Past History - Past Medical History Allergies/Adverse Reactions: Allergies Allergy/AdvReac Type Severity Reaction Status Date / Time NSAIDS (Non-Steroidal AdvReac Unknown Swelling Verified 03/09/19 20:16 Anti-Inflamma Home Medications: Ambulatory Orders Acetaminophen [Tylenol .Regular Strength -] 650 mg PO Q4H PRN #30 tablet Hydroxychloroquine So4 [Plaquenil -] 400 mg PO DAILY 03/23/16 Losartan Potassium [Cozaar -] 50 mg PO DAILY 03/23/16 Mycophenolate Mofetil [Cellcept -] 500 mg PO BID 08/15/18 Aspirin [ASA -] 81 mg PO DAILY #30 tab.chew 08/16/18 Methylprednisolone [Medrol Dose Luis] 4 mg PO ASDIR #21 tablet 03/09/19 Anemia: Yes Asthma: No Cancer: No Cardiac Disorders: (pericarditis) CVA: No COPD: No CHF: No Dementia: No Diabetes: No GI Disorders: No Disorders: No HTN: No Hypercholesterolemia: No Liver Disease: No Seizures: No Thyroid Disease: No Other medical history: lupus - Surgical History Abdominal Surgery: No Appendectomy: No Cardiac Surgery: No Cholecystectomy: No Lung Surgery: No Neurologic Surgery: No Orthopedic Surgery: No - Immunization History Immunization Up to Date: Yes - Suicide/Smoking/Psychosocial Hx Smoking Status: Yes Smoking History: Never smoked Have you smoked in the past 12 months: No Number of Cigarettes Smoked Daily: 0 If you are a former smoker, when did you quit?: 10YRS AGO Information on smoking cessation initiated: No Hx Alcohol Use: No Drug/Substance Use Hx: No Substance Use Type: None Hx Substance Use Treatment: No *Physical Exam - Vital Signs Last Vital Signs Temp Pulse Resp BP Pulse Ox 98.3 F 76 18 128/75 100 03/09/19 20:13 03/09/19 20:13 03/09/19 20:13 03/09/19 20:13 03/09/19 20:13 ED Treatment Course - Medications Given in the ED: ED Medications Discontinued Medications Generic Name Dose Route Start Last Admin Trade Name Freq PRN Reason Stop Dose Admin Acetaminophen 975 mg 03/09/19 20:15 03/09/19 20:46 Tylenol - PO 03/09/19 20:16 975 mg ONCE ONE Administration *DC/Admit/Observation/Transfer Diagnosis at time of Disposition: Back pain Qualifiers: Back pain location: low back pain Chronicity: acute Back pain laterality: bilateral Sciatica presence: without sciatica Qualified Code(s): M54.5 - Low back pain - Discharge Dispostion Disposition: HOME Condition at time of disposition: Stable Decision to Admit order: No - Referrals Referrals: Eric Gonzalez MD [Primary Care Provider] - Alexandre Dominguez MD [Staff Physician] - - Patient Instructions Printed Discharge Instructions: DI for Low Back Pain Additional Instructions: You have low back pain due to a muscle spasm. Please take Tylenol 1000mg every 6 hours until your symptoms resolve. You were also prescribed Flexeril. Please take this medication every 8 hours for the first day. Then take the medication before you go to bed. Do not drive after taking this medication as it may make you sleepy. Also take the medrol dose pack as prescribed. You may use warm compresses on your back to help with her symptoms. Please follow-up with your primary care doctor. If your symptoms do not resolve in 3-5 days, follow-up with orthopedics. A referral has been provided for you. Return to the emergency department if you have worsening back pain, bladder or bowel incontinence, numbness and tingling in her legs, changes in the way you walk, or any new or worsening symptoms. - Post Discharge Activity Forms/Work/School Notes: Back to Work
[2019-03-09] MEDS ORDERED: LIDOCAINE 5% TOPICAL PATCH ONE (21:30)
[2019-03-09 21:57] LABS: URINE APPEARANCE CLEAR; URINE BILIRUBIN NEGATIVE (NEGATIVE); URINE COLOR YELLOW; URINE GLUCOSE (UA) NEGATIVE (NEGATIVE); URINE KETONE NEGATIVE (NEGATIVE); URINE LEUK ESTERASE NEGATIVE (NEGATIVE); URINE NITRITE NEGATIVE (NEGATIVE); URINE PROTEIN NEGATIVE (NEGATIVE); URINE UROBILINOGEN 0.2 mg/dL (0.2-1.0)
[2019-03-09] MEDS ORDERED: LIDOCAINE PATCH REMOVAL MC SCH (22:00)
== END 2019-03-09 22:35 | disposition home or self-care (01) ==
LOC: JERFT 19:49
DX: M54.5 Low back pain (principal); X50.9XXA Other and unspecified overexertion or strenuous movements or postures, initial encounter; Y93.89 Activity, other specified; Y92.128 Other place in nursing home as the place of occurrence of the external cause
CPT/HCPCS: 81003; 87086; 99281-25

== ENCOUNTER 2019-03-22 19:15 | Emergency (ER) | payer OTHER ==
--- NOTE | 2019-03-22 19:21 | PDOC ---
Rapid Medical Evaluation Time Seen by Provider: 03/22/19 19:19 Medical Evaluation: Allergies Allergy/AdvReac Type Severity Reaction Status Date / Time NSAIDS (Non-Steroidal AdvReac Unknown Swelling Verified 03/09/19 20:16 Anti-Inflamma 03/22/19 19:20 I have performed a brief in-person evaluation of this patient. The patient presents with a chief complaint of: "pain across spine and my whole body is sore." denies fever, cough. was seen recently for similar symptoms and prescribed muscle relaxants "which did nothing." pain worsens when bending forward - "i feel like i pulled a muscle somewhere" Pertinent physical exam findings: well appearing, ambulatory, tenderness to paraspinal spinals to thoracic/lumbar spine I have ordered the following: nothing The patient will proceed to the ED for further evaluation.
[2019-03-22 19:24] VITALS: BP 130/66; PULSE 75; TEMP 98.3; BMI 29.7
[2019-03-22 19:54] LABS: EPI CELLS 8.2 /HPF (0-5/HPF); HYALINE CASTS 20 /lpf (0-8); URINE APPEARANCE CLOUDY; URINE BACTERIA 62.5 /hpf (NEGATIVE); URINE BILIRUBIN NEGATIVE (NEGATIVE); URINE COLOR DK YELLOW; URINE GLUCOSE (UA) NEGATIVE (NEGATIVE); URINE KETONE TRACE (NEGATIVE); URINE LEUK ESTERASE TRACE (NEGATIVE); URINE NITRITE NEGATIVE (NEGATIVE); URINE PROTEIN 2+ (NEGATIVE); URINE RBC 4 /hpf (0-4); URINE WBC 28 /hpf (0-5)
--- NOTE | 2019-03-22 20:20 | PDOC ---
History of Present Illness - General Chief Complaint: Pain Stated Complaint: BODY PAIN Time Seen by Provider: 03/22/19 19:19 History Source: Patient, Old Records Exam Limitations: No Limitations - History of Present Illness Initial Comments: 03/22/19 20:15 HISTORY OF PRESENT ILLNESS: 54-year-old woman past medical history of SLE presents emergency department for evaluation of lower back pain. Patient reports multiple episodes of lower back pain for which she has been prescribed Tylenol and muscle relaxants with minimal relief of symptoms. Most recently seen approximately 8 days ago here in the emergency department has had no relief from prescription medication. Patient denies any fevers, chills, dysuria , hematuria, urinary frequency. No recent travel or sick contacts. PAST MEDICAL HISTORY: SLE SURGICAL HISTORY: Denies ALLERGIES: No known drug allergies REVIEW OF SYSTEMS General/Constitutional: Denies fever or chills. Denies weakness, weight change. HEENT: Denies change in vision. Denies ear pain or discharge. Denies sore throat. Cardiovascular: Denies chest pain or shortness of breath. Respiratory: Denies cough, wheezing, or hemoptysis. Gastrointestinal: Denies nausea, vomiting, diarrhea or constipation. Denies rectal bleeding. Genitourinary: Denies dysuria, frequency, or change in urination. Musculoskeletal: see HPI Skin and breasts: Denies rash or easy bruising. Neurologic: Denies headache, vertigo, loss of consciousness, or loss of sensation. Psychiatric: Denies depression or anxiety. Endocrine: Denies increased thirst. Denies abnormal weight change. Hematologic/Lymphatic: Denies anemia, easy bleeding, or history of blood clots. Allergic/Immunologic: Denies hives or skin allergy. Denies latex allergy. PHYSICAL EXAM General Appearance: Well-appearing, appropriately dressed. No apparent distress , no intoxication. HEENT: EOMI, PERRLA, normal ENT inspection, normal voice, TMs normal, pharynx normal. No conjunctival pallor. No photophobia, scleral icterus. Neck: Supple. Trachea midline. No tenderness, rigidity, carotid bruit, stridor , lymphadenopathy, or thyromegaly. Respiratory/Chest: Lungs CTAB. No shortness of breath, chest tenderness, respiratory distress, accessory muscle use. No crackles, rales, rhonchi, stridor , wheezing, dullness Cardiovascular: RRR. S1, S2. No JVD, murmur, bradycardia, tachycardia. Vascular Pulses: Dorsalis-Pedis (R): 2+, Dorsalis-Pedis (L): 2+ Gastrointestinal/Abdominal: Normal bowel sounds. Abdomen soft, non-distended. No tenderness or rebound tenderness. No organomegaly, pulsatile mass, guarding, hernia, hepatomegaly, splenomegaly. Lymphatic: No adenopathy, tenderness. Musculoskeletal/Extremities: Normal inspection. FROM of all extremities, normal capillary refill. Pelvis Stable. No CVA tenderness. No tenderness to extremities, pedal edema, swelling, erythema or deformity. Integumentary: Appropriate color, dry, warm. No cyanosis, erythema, jaundice or rash Neurologic: quality assurance/r&d lab technician II-XII intact. Fully oriented, alert. Appropriate mood/affect. Motor strength 5/5. No appreciable EOM palsy, facial droop or sensory deficit. Past History - Past Medical History Allergies/Adverse Reactions: Allergies Allergy/AdvReac Type Severity Reaction Status Date / Time NSAIDS (Non-Steroidal AdvReac Unknown Swelling Verified 03/22/19 19:21 Anti-Inflamma Home Medications: Ambulatory Orders Acetaminophen [Tylenol .Regular Strength -] 650 mg PO Q4H PRN #30 tablet Hydroxychloroquine So4 [Plaquenil -] 400 mg PO DAILY 03/23/16 Losartan Potassium [Cozaar -] 50 mg PO DAILY 03/23/16 Mycophenolate Mofetil [Cellcept -] 500 mg PO BID 08/15/18 Aspirin [ASA -] 81 mg PO DAILY #30 tab.chew 08/16/18 Methylprednisolone [Medrol Dose Luis] 4 mg PO ASDIR #21 tablet 03/09/19 Cephalexin Monohydrate [Keflex -] 500 mg PO Q8H #30 capsule 03/22/19 Anemia: Yes Asthma: No Cancer: No Cardiac Disorders: (pericarditis) CVA: No COPD: No CHF: No Dementia: No Diabetes: No GI Disorders: No Disorders: No HTN: No Hypercholesterolemia: No Liver Disease: No Seizures: No Thyroid Disease: No - Surgical History Abdominal Surgery: No Appendectomy: No Cardiac Surgery: No Cholecystectomy: No Lung Surgery: No Neurologic Surgery: No Orthopedic Surgery: No - Immunization History Immunization Up to Date: Yes - Suicide/Smoking/Psychosocial Hx Smoking Status: Yes Smoking History: Unknown if ever smoked Have you smoked in the past 12 months: No Number of Cigarettes Smoked Daily: 0 If you are a former smoker, when did you quit?: 10YRS AGO Hx Alcohol Use: No Drug/Substance Use Hx: No Substance Use Type: None Hx Substance Use Treatment: No Trauma Specific PMHX - Complaint Specific PMHX Back Injury: No Neck Injury: No *Physical Exam - Vital Signs Last Vital Signs Temp Pulse Resp BP Pulse Ox 98.3 F 75 16 130/66 100 03/22/19 19:22 03/22/19 19:22 03/22/19 19:22 03/22/19 19:22 03/22/19 19:22 ED Treatment Course - ADDITIONAL ORDERS Additional order review: Laboratory Results 03/22/19 19:41 Urine Color Dk yellow Urine Appearance Cloudy Urine pH 5.0 Ur Specific [place] 1.035 Urine Protein 2+ H Urine Glucose (UA) Negative Urine Ketones Trace H Urine Blood Negative Urine Nitrite Negative Urine Bilirubin Negative Urine Urobilinogen 1.0 Ur Leukocyte Esterase Trace Urine WBC (Auto) 28 Urine RBC (Auto) 4 Urine Casts (Auto) 20 U Epithel Cells (Auto) 8.2 Urine Bacteria (Auto) 62.5 Medical Decision Making - Medical Decision Making 03/22/19 20:19 A/P: 54-year-old woman with atraumatic lower back pain No CVA tenderness No bony tenderness upon palpation. No paraspinous muscle tenderness or muscle spasm present Urinalysis sent for rapid medical evaluation suggestive of urinary tract infection. Given patient's constellation of symptoms as well as immunosuppressed status I will treat for pyelonephritis as an outpatient with Keflex 500 mg 3 times a day for 10 days. Patient has taken Tylenol prior to arrival in the emergency department. I will defer any further treatment for pain as been The patient that this suggested that the urinary tract infection is causing her pain. She should continue taking Tylenol as previously instructed as well as antibiotics as well as increasing fluid intake. Patient verbalizes understanding of discharge instructions. *DC/Admit/Observation/Transfer Diagnosis at time of Disposition: Urinary tract infection Qualifiers: Urinary tract infection type: acute pyelonephritis Qualified Code(s): N10 - Acute pyelonephritis - Discharge Dispostion Disposition: HOME Condition at time of disposition: Stable Decision to Admit order: No - Prescriptions Prescriptions: Cephalexin Monohydrate [Keflex -] 500 mg PO Q8H #30 capsule - Referrals Referrals: Eric Gonzalez MD [Primary Care Provider] - - Patient Instructions Additional Instructions: Rest, drink lots of fluids: Teas, water, soups Avoid contact with others until fevers and symptoms resolved Lots of handwashing and good hygiene Continue [id number] medications for symptomatic relief Tylenol or Motrin for fever and pain Continue all of antibiotics until completed Followup with private physician in one week for repeat urinalysis/reevaluation Return to emergency department for worsened symptoms, fevers, dehydration - Post Discharge Activity Forms/Work/School Notes: Back to Work
== END 2019-03-22 20:39 | disposition home or self-care (01) ==
LOC: JERFT 19:15
DX: N10 Acute pyelonephritis (principal); M32.9 Systemic lupus erythematosus, unspecified
CPT/HCPCS: 81003; 87086; 99281-25

== ENCOUNTER 2019-05-09 08:48 | Day surgery (SDC) | payer OTHER ==
[2019-05-08 14:27] VITALS: BMI 29.7
[2019-05-09] MEDS ORDERED: ROPIVACAINE HCL 0.5% 30ML VIAL ONE (09:51)
[2019-05-09] MEDS ORDERED: DEXAMETHASONE SOD PHOSPHATE/PF 10 MG/ML SDV ONE (09:51)
[2019-05-09] MEDS ORDERED: MIDAZOLAM HCL 2 MG/2 ML SINGLE DOSE VIAL ONE ×3 (09:52→11:26)
--- NOTE | 2019-05-09 10:16 | HP ---
Satellite H - Chief Complaint Chief Complaint: left shoulder pain - Past Medical History Allergies/Adverse Reactions: Allergies Allergy/AdvReac Type Severity Reaction Status Date / Time NSAIDS (Non-Steroidal AdvReac Unknown Swelling Verified 05/07/19 13:22 Anti-Inflamma Cardiovascular: Yes: HTN, Other (h/o pericardial effusion) Rheumatology: Yes: Lupus - Current Medications Current Medications: Home Medications Medication Instructions Recorded Acetaminophen [Tylenol .Regular 650 mg PO Q4H PRN #30 tablet 10/14/15 Strength -] Hydroxychloroquine So4 [Plaquenil 500 mg PO BID 03/23/16 -] Losartan Potassium [Cozaar -] 50 mg PO DAILY 03/23/16 Mycophenolate Mofetil [Cellcept -] 500 mg PO BID 08/15/18 Aspirin [ASA -] 81 mg PO DAILY #30 tab.chew 08/16/18 Alendronate Sodium [Binosto] 70 mg PO WEEKLY 05/07/19 Hydrocodone/Acetaminophen 1 each PO Q6H #30 tablet MDD 4 05/09/19 [Hydrocodone-Acetamin 5-325 mg] Satellite Physical Exam - Physical Examination Vital Signs: Vital Signs Period Temp Pulse Resp BP Sys/Singleton Pulse Ox Last 24 Hr 98.2 F 67 18 135/70 General Appearance: Well Nourished, Well Developed, Alert & Oriented x3 ENT: Clear Lung: Normal air movement Heart: Regular rate & rhythm Extremities: Other (left shoulder- + ttp, decr rom, + neer,+davila, + empty can , nvi, MRI rct) Neurological: Intact, Alert, Oriented Satellite Impression/Plan - Impression/Plan Impression: left shoulder RCT Operative Procedure: left shoulder arthroscopy with RCR, SAD Date to be Performed: 05/09/19
[2019-05-09 11:12] LABS: EPI CELLS 3.2 /HPF (0-5/HPF); HYALINE CASTS 5 /lpf (0-8); URINE APPEARANCE TURBID; URINE BACTERIA 25.1 /hpf (NEGATIVE); URINE BILIRUBIN NEGATIVE (NEGATIVE); URINE COLOR YELLOW; URINE GLUCOSE (UA) NEGATIVE (NEGATIVE); URINE KETONE NEGATIVE (NEGATIVE); URINE LEUK ESTERASE 1+ (NEGATIVE); URINE NITRITE NEGATIVE (NEGATIVE); URINE PROTEIN 2+ (NEGATIVE); URINE RBC 1 /hpf (0-4); URINE UROBILINOGEN 0.2 mg/dL (0.2-1.0); URINE WBC 5 /hpf (0-5)
[2019-05-09] MEDS ORDERED: ceFAZolin SODIUM 1 GM VIAL IVPB ONE (11:26)
[2019-05-09] MEDS ORDERED: ceFAZolin SODIUM 1 GM VIAL ONE (11:26)
[2019-05-09] MEDS ORDERED: ONDANSETRON 4 MG/2 ML VIAL IVPUSH PRN (12:06)
[2019-05-09] MEDS ORDERED: oxyCODONE HCL 5 MG TABLET PO PRN (12:06)
[2019-05-09] MEDS ORDERED: PROPOFOL 20 ML ONE (12:11)
[2019-05-09] MEDS ORDERED: LACTATED RINGERS SOLUTION 1,000 ML IV SCH (12:15)
--- NOTE | 2019-05-09 12:36 | OP ---
Operative Note - Note: Operative Date: 05/09/19 ([facility]) Pre-Operative Diagnosis: left shoulder rct Operation: left shoulder arthroscopy RCR,SAD,DCE Implants: 2 arthrex swivelocks Post-Operative Diagnosis: Same as Pre-op Surgeon: Jonn España Rn Recruitment: Ramesh Montano Anesthesiologist/CAR INSTALLATIONS SUPERVISOR: Parag Gandara Anesthesia: General, Local Specimens Removed: shavings Estimated Blood Loss (mls): 10 Operative Report Dictated: Yes
[2019-05-09 14:36] VITALS: TEMP 97.8
[2019-05-09 15:21] VITALS: BP 121/68; PULSE 69
--- NOTE | 2019-05-09 19:15 | OP ---
DATE OF OPERATION: 05/09/2019 PREOPERATIVE DIAGNOSIS: Left shoulder impingement syndrome, rotator cuff tear. POSTOPERATIVE DIAGNOSIS: Left shoulder impingement syndrome, rotator cuff tear. PROCEDURE: Left shoulder arthroscopy, subacromial decompression, distal clavicle excision, and arthroscopic rotator cuff repair. SURGEON: Jonn España MD ASSISTANTS: GEOVANNI Gonsalves; Parag Gandara, REF-CRN ANESTHESIA: Left interscalene block with MAC anesthesia. DRAINS: None. COMPLICATIONS: None. BLOOD LOSS: Minimal. BLOOD GIVEN: None. FLUID REPLACEMENT: 700 mL Plasmalyte. This patient is a 54-year-old female with a preoperative diagnosis of left shoulder impingement syndrome and a rotator cuff tear. After understanding the potential risks, complications, alternatives, and benefits to surgery versus nonsurgical treatment, the patient elected to undergo this procedure. DESCRIPTION: The patient was brought to the operating room, peripheral IV placed, IV sedation given. Then 1 g of IV Ancef was given. MAC anesthesia was induced. She was placed into the beach chair position with ample padding throughout. The left upper extremity was prepped and draped in a sterile fashion. The bony landmarks were marked out with a marking pen. A posterior portal was established and a diagnostic glenohumeral arthroscopy was performed. The glenohumeral joint overall looked good. There was no glenohumeral osteoarthritis. The labrum looked good. There was a clear undersurface full-thickness tear; however. Next our attention turned to the subacromial space. The patient had a lot of inflammatory bursitis. A lateral portal was established under direct visualization. A soft tissue bursectomy was performed with the ArthroCare wand. This revealed a large subacromial spur, moderate sized distal clavicle spur, and a clear full-thickness rotator cuff tear from the top as well. A soft tissue bursectomy was performed with the ArthroCare wand the straight shaver. Then the distal clavicle and the subacromial spur were taken down with a 5.5-mm oval bur. It was fine-tuned in reverse and then the other shaver was used to fine tune it further and to remove all bony debris. A subdeltoid bursectomy was performed. Once this was done, we could see that there was a full-thickness rotator cuff tear. It was also delaminating in several planes. The area was mobilized, debrided with the shaver, and the Tapactive grasper was used to show us which levels were mobile and we were able to get it back to cover the humeral head completely. Next, 3 FiberWires were placed through the Scorpion needle passer and fed through an Arthrex Swivel-Lock anchor which was put down through the anterior portion of the humeral head. This brought down the anterior 60% of the rotator cuff tear. Next, another posterior 3 sutures were placed in a similar fashion, put down through another Arthrex Swivel-Lock anchor, bringing down the posterior 40% of the tear. Once this was done, the rotator cuff moved as a unit with the humeral head and overall it actually looked quite good. The area was copiously irrigated and washed out, photographs were taken, as they had been throughout the case. Excess saline removed. The arthroscopy portals were closed with 3-0 nylon sutures. The area was then washed and dried, covered with Aquacel dressing. The patient was put into a shoulder immobilizer, brought down out of the beach chair position. Total operative time was about 50 minutes. There were no complications during the case. The patient tolerated the procedure quite well, was brought to the ambulatory recovery room in stable condition. Hawk [id number]
--- NOTE | 2019-05-11 21:02 | PATH ---
Surgical Pathology Report Patient Name: ROBERT BRISCOE Med. Rec. #: [id number] /Age/Gender: 1965 (Age: 54) / F Account: [id number] Location: [facility] Taken: 05/09/2019 Received: 05/09/2019 Reported: 05/11/2019 Physicians: Jonn España M.D. Specimen(s) Received LEFT SHOULDER SHAVINGS Clinical History Left shoulder tear Final Diagnosis SHOULDER SHAVINGS, LEFT, ARTHROSCOPY, ROTATOR CUFF REPAIR: FRAGMENTS OF BENIGN BONE, CARTILAGE, DENSE FIBROCONNECTIVE TISSUE, ADIPOSE TISSUE, AND SKELETAL MUSCLE. Electronically Signed Nohemi Patterson M.D. Gross Description Received in formalin, labeled "left shoulder shavings," is a 4.5 x 4.0 x 0.4 cm. aggregate of austin-yellow soft tissue fragments. A patient financial representative portion is submitted in one cassette. /05/10/2019 saudi05/10/2019
== END 2019-05-09 15:50 | disposition home or self-care (01) ==
LOC: JASU-SURG 08:48
PROVIDERS: ATTEND Orthopaedic Surgery
PROC: 0PBB4ZZ Excision of Left Clavicle, Percutaneous Endoscopic Approach (ICD-10-PCS; 2019-05-09)
PROC: 0RNK4ZZ Release Left Shoulder Joint, Percutaneous Endoscopic Approach (ICD-10-PCS; principal; 2019-05-09 10:30)
PROC: 0LQ24ZZ Repair Left Shoulder Tendon, Percutaneous Endoscopic Approach (ICD-10-PCS; 2019-05-09 10:30)
DX: M75.42 Impingement syndrome of left shoulder (principal); M75.101 Unspecified rotator cuff tear or rupture of right shoulder, not specified as traumatic
CPT/HCPCS: 81003; 88304-TC; 94760

== ENCOUNTER 2020-07-30 20:33 | Emergency (ER) | payer OTHER ==
[2020-07-30 20:38] VITALS: BP 157/62; PULSE 89; TEMP 99.6; BMI 29.2
[2020-07-30] MEDS ORDERED: SODIUM CHLORIDE 1,000 ML IV STA (20:44)
[2020-07-30] MEDS ORDERED: ACETAMINOPHEN 1000 MG/100 ML VIAL (NON FORMULARY) IVPB ONE (20:44)
--- NOTE | 2020-07-30 20:47 | PDOC ---
Rapid Medical Evaluation Chief Complaint: Headache Time Seen by Provider: 07/30/20 20:44 Medical Evaluation: Allergies Allergy/AdvReac Type Severity Reaction Status Date / Time NSAIDS (Non-Steroidal AdvReac Unknown Swelling Verified 05/07/19 13:22 Anti-Inflamma Vital Signs Temp Pulse Resp BP Pulse Ox 99.6 F 89 19 157/62 100 07/30/20 20:33 07/30/20 20:33 07/30/20 20:33 07/30/20 20:33 07/30/20 20:33 07/30/20 20:45 CC: frontal throbbing pressure x 2 days with ringing in her ears, took tylenol with no improvement, No hx of headache, denies illness, head injury, dental or neck pain Exam: normal PE, vss Plan: labs, urine, ivf, head ct Discharge Disposition - Diagnosis Head ache - Referrals - Patient Instructions - Post Discharge Activity
[2020-07-30] MEDS ORDERED: ACETAMINOPHEN INJECTION 100 ML IVPB ONE (20:57)
--- NOTE | 2020-07-30 20:57 | PDOC ---
History of Present Illness - General Chief Complaint: Headache Stated Complaint: HEADACHE Time Seen by Provider: 07/30/20 20:44 History Source: Patient, Old Records Exam Limitations: No Limitations - History of Present Illness Initial Comments: 07/30/20 21:47 HISTORY OF PRESENT ILLNESS: 55-year-old woman who presents emergency department for evaluation of 3 days of headache starting between her eyes and radiating to the retro-orbits. Patient reports the pain is a 7/10. Patient reports having ringing sensation in both ears which she describes as faints and in the backgrou nd but is constantly present. She denies any ear trauma, earbud use, swimming, headphone usage or loud music. Patient reports has been taken Tylenol with minimal relief of her symptoms denies any nausea, vomiting, dizziness, blurry vision, chest pain or shortness of breath. No recent travel or sick contacts. PAST MEDICAL HISTORY: SLE, hypertension SURGICAL HISTORY: Denies ALLERGIES: NSAIDs REVIEW OF SYSTEMS General/Constitutional: Denies fever or chills. Denies weakness, weight change. HEENT: Denies change in vision. Denies ear pain or discharge. Denies sore throat. Cardiovascular: Denies chest pain or shortness of breath. Respiratory: Denies cough, wheezing, or hemoptysis. Gastrointestinal: Denies nausea, vomiting, diarrhea or constipation. Denies rectal bleeding. Genitourinary: Denies dysuria, frequency, or change in urination. Musculoskeletal: Denies joint or muscle swelling or pain. Denies neck or back pain. Skin and breasts: Denies rash or easy bruising. Neurologic: See HPI Psychiatric: Denies depression or anxiety. Endocrine: Denies increased thirst. Denies abnormal weight change. Hematologic/Lymphatic: Denies anemia, easy bleeding, or history of blood clots. Allergic/Immunologic: Denies hives or skin allergy. Denies latex allergy. PHYSICAL EXAM General Appearance: Well-appearing, appropriately dressed. No apparent distress, no intoxication. HEENT: EOMI, PERRLA, normal ENT inspection, normal voice, TMs normal, pharynx normal. No conjunctival pallor. No photophobia, scleral icterus. Neck: Supple. Trachea midline. No tenderness, rigidity, carotid bruit, stridor, lymphadenopathy, or thyromegaly. No meningismus. Respiratory/Chest: Lungs CTAB. No shortness of breath, chest tenderness, respiratory distress, accessory muscle use. No crackles, rales, rhonchi, stridor, wheezing, dullness Cardiovascular: RRR. S1, S2. No JVD, murmur, bradycardia, tachycardia. 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 Fully oriented, alert. Appropriate mood/affect. Motor strength 5/5. No appreciable EOM palsy, facial droop or sensory deficit. Normal gait. Normal finger-nose testing. No pronator drift noted. Past History - Medical History Allergies/Adverse Reactions: Allergies Allergy/AdvReac Type Severity Reaction Status Date / Time NSAIDS (Non-Steroidal AdvReac Unknown Swelling Verified 05/07/19 13:22 Anti-Inflamma Home Medications: Ambulatory Orders Acetaminophen [Tylenol .Regular Strength -] 650 mg PO Q4H PRN #30 tablet 10/14/15 Hydroxychloroquine So4 [Plaquenil -] 500 mg PO BID 03/23/16 Losartan Potassium [Cozaar -] 50 mg PO DAILY 03/23/16 Mycophenolate Mofetil [Cellcept -] 500 mg PO BID 08/15/18 Aspirin [ASA -] 81 mg PO DAILY #30 tab.chew 08/16/18 Alendronate Sodium [Binosto] 70 mg PO WEEKLY 05/07/19 Hydrocodone/Acetaminophen [Hydrocodone-Acetamin 5-325 mg] 1 each PO Q6H #30 tablet MDD 4 05/09/19 Anemia: Yes Asthma: No Cancer: No Cardiac Disorders: Yes (pericarditis, 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) CVA: No COPD: No CHF: No (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) Dementia: No Diabetes: No GI Disorders: No Disorders: No HTN: Yes (NOT SURE OF MD NAME) Hypercholesterolemia: No Liver Disease: No Seizures: No Thyroid Disease: No Other medical history: LUPUS - Surgical History Abdominal Surgery: No Appendectomy: No Cardiac Surgery: No Cholecystectomy: No Lung Surgery: No Neurologic Surgery: No Orthopedic Surgery: No - Immunization History Immunization Up to Date: Yes - Psycho-Social/Smoking History Smoking Status: Yes Smoking History: Never smoked Have you smoked in the past 12 months: No Number of Cigarettes Smoked Daily: 0 If you are a former smoker, when did you quit?: yrs ago - Substance Abuse Hx (Audit-C & DAST Scrn) How often the patient has a drink containing alcohol: Never Score: In Men: 4 or > Positive; In Women: 3 or > Positive: 0 Screen Result (Pos requires Nsg. Audit-10AR): Negative In the last yr the pt used illegal drug/Rx for NonMed reason: No Score: Yes response is considered Positive: 0 Screen Result (Positive result requires Nsg. DAST-10): Negative *Physical Exam - Vital Signs Last Vital Signs Temp Pulse Resp BP Pulse Ox 99.6 F 89 19 157/62 100 07/30/20 20:33 07/30/20 20:33 07/30/20 20:33 07/30/20 20:33 07/30/20 20:33 ED Treatment Course - LABORATORY CBC & Chemistry Diagram: 07/30/20 21:05 07/30/20 21:05 Medical Decision Making - Medical Decision Making 07/30/20 22:28 A/P: 55-year-old woman with frontal headache and tinnitus As patient is having symptoms of her auditory system I will get a CT of the temporal bones to rule out acoustic neuroma Reglan 10 mg IV push Benadryl 25 mg IV push Normal saline 1 L IV bolus Tylenol 1 g IV bolus Reassess 07/30/20 23:34 CT scan is read by imaging on-call: Small amount of debris within the right and left external auditory canals. Study is otherwise unremarkable. Normal CT scan of the petrous temporal bones. Patient is currently pain-free after receiving rescue medication. Given normal CT scan and laboratory testing as well as patient's complete resolution of pain I feel it is safe to discharge home to follow-up with a primary doctor for continued evaluation. I discussed the physical exam findings, ancillary test results and final diagnoses with the patient. I answered all of the patient's questions. The patient was satisfied with the care received and felt comfortable with the dis charge plan and treatment plan. The patient will call their primary care physician within 24 hours to arrange follow-up and will return to the Emergency Department with any new, persistent or worsening symptoms. Portions of this note have been documented using voice recognition software. As a result, errors may occur in the mold parter process. Effort has been made to correct all grammatical and mold parter error, but some may have been missed which may produce sporadic inaccurate mold parter or nonsensical phrases. Discharge - Discharge Information Problems reviewed: Yes Clinical Impression/Diagnosis: Head ache Qualifiers: Headache type: unspecified Headache chronicity pattern: acute headache Intractability: not intractable Qualified Code(s): R51 - Headache Condition: Stable Disposition: HOME - Admission No - Follow up/Referral Referrals: Eric Gonzalez MD [Primary Care Provider] - Anatoly Ricardo MD [Staff Physician] - - Patient Discharge Instructions Additional Instructions: Take Tylenol or Motrin as needed for headaches. Keep a diary of all food to eat and activities performed prior to headaches starting. Make an appointment with your primary doctor for reevaluation within the next week. Return to emergency department for worsening headache, blurry vision, dizziness, nausea, vomiting or any other concerns. Thank you very much for for choosing us to provide emergent health care needs. - Post Discharge Activity Work/Back to School Note: Back to Work
[2020-07-30] MEDS ORDERED: METOCLOPRAMIDE HCL INJECTION 10 MG/2 ML VIAL IVPUSH ONE (20:58)
[2020-07-30] MEDS ORDERED: METOCLOPRAMIDE HCL INJECTION 10 MG/2 ML VIAL ONE (21:22)
[2020-07-30 21:55] LABS: BASO % 0.3 % (0-2.0); EOS % 0.4 % (0-4.5); HEMATOCRIT 29.9 % (32.4-45.2); HEMOGLOBIN 9.7 GM/dL (10.7-15.3); LYMPH % 22.8 % (8-40); MCHC 32.5 g/dl (32.0-36.0); MEAN CELL VOLUME 82.9 fl (80-96); MEAN PLT VOLUME 8.9 fl (7.5-11.1); MONO % 9.5 % (3.8-10.2); PLATELET COUNT 199 K/MM3 (134-434); RDW 15.5 % (11.6-15.6); WHITE BLOOD COUNT 3.2 K/mm3 (4.0-10.0)
[2020-07-30 22:25] LABS: ALBUMIN 3.4 g/dl (3.4-5.0); BILIRUBIN,TOTAL 0.2 mg/dL (0.2-1); BLOOD UREA NITROGEN 15.8 mg/dL (7-18); CALCIUM 9.4 mg/dL (8.5-10.1); CREATININE 0.8 mg/dL (0.55-1.3); MAGNESIUM 2.1 mg/dL (1.8-2.4); POTASSIUM 3.7 mmol/L (3.5-5.1); TOT PROT 7.9 g/dl (6.4-8.2)
== END 2020-07-30 23:40 | disposition home or self-care (01) ==
LOC: JER 20:33
PROC: 3E0333Z Introduction of Anti-inflammatory into Peripheral Vein, Percutaneous Approach (ICD-10-PCS; principal; 2020-07-30)
PROC: 3E033GC Introduction of Other Therapeutic Substance into Peripheral Vein, Percutaneous Approach (ICD-10-PCS; 2020-07-30)
PROC: 3E0337Z Introduction of Electrolytic and Water Balance Substance into Peripheral Vein, Percutaneous Approach (ICD-10-PCS; 2020-07-30)
DX: R51 Headache (principal)
CPT/HCPCS: 36415; 70480-TC; 80053; 83735; 85025; 99285-25; J0131

== ENCOUNTER 2020-10-05 08:38 | Emergency (ER) | payer OTHER ==
[2020-10-05 08:45] VITALS: BP 125/74; PULSE 62; TEMP 97; BMI 28.3
[2020-10-05] MEDS ORDERED: BACITRACIN 0.9 GM PACKET ONE (09:18)
[2020-10-05] MEDS ORDERED: DIPHTH,PERTUSS(ACELL),TET 0.5 ML DISP.SYRIN IM ONE ×2 (09:34→09:46)
== END 2020-10-05 09:56 | disposition home or self-care (01) ==
LOC: JERFT 08:38 → JER 08:38 → JERFT 09:56
PROC: 3E0234Z Introduction of Serum, Toxoid and Vaccine into Muscle, Percutaneous Approach (ICD-10-PCS; principal; 2020-10-05)
DX: T21.22XA Burn of second degree of abdominal wall, initial encounter (principal)
CPT/HCPCS: 90715; 99284-25

== ENCOUNTER 2020-12-22 08:43 | Emergency (ER) | payer OTHER ==
[2020-12-22 09:00] VITALS: BP 144/66; PULSE 76; TEMP 98; BMI 27.1
[2020-12-22] MEDS ORDERED: ACETAMINOPHEN 325 MG TABLET (FP) PO ONE (09:28)
[2020-12-22] MEDS ORDERED: METHOCARBAMOL 500 MG TABLET PO ONE (09:29)
[2020-12-22] MEDS ORDERED: LIDOCAINE 5% TOPICAL PATCH TP ONE (09:29)
[2020-12-22] MEDS ORDERED: LIDOCAINE 5% TOPICAL PATCH ONE (09:59)
[2020-12-22] MEDS ORDERED: METHOCARBAMOL 500 MG TABLET ONE (09:59)
[2020-12-22] MEDS ORDERED: ACETAMINOPHEN 325 MG TABLET (FP) ONE (09:59)
== END 2020-12-22 11:04 | disposition home or self-care (01) ==
LOC: JER 08:43
DX: M54.6 Pain in thoracic spine (principal)
CPT/HCPCS: 99283-25

== ENCOUNTER 2020-12-23 12:54 | Emergency (ER) | payer OTHER ==
[2020-12-23 12:58] VITALS: BP 147/49; PULSE 63; TEMP 97.5; BMI 27.9
== END 2020-12-23 14:44 | disposition home or self-care (01) ==
LOC: JERFT 12:54
DX: M54.6 Pain in thoracic spine (principal)
CPT/HCPCS: 71046-TC-FY; 72070-TC-FY; 99284-25

== ENCOUNTER 2021-06-16 17:18 | Emergency (ER) | payer OTHER ==
[2021-06-16 17:30] VITALS: BP 113/60; PULSE 85; TEMP 98; BMI 29.7
== END 2021-06-16 19:53 | disposition home or self-care (01) ==
LOC: JERFT 17:18
DX: M54.5 Low back pain (principal)
CPT/HCPCS: 99283-25

== ENCOUNTER 2021-09-21 13:20 | Emergency (ER) | payer OTHER ==
[2021-09-21 13:42] VITALS: BP 121/77; PULSE 96; TEMP 98.1; BMI 29.7
== END 2021-09-21 15:24 | disposition home or self-care (01) ==
LOC: JERFT 13:20
DX: H10.31 Unspecified acute conjunctivitis, right eye (principal)
CPT/HCPCS: 99283-25

== ENCOUNTER 2022-04-09 21:14 | Emergency (ER) | payer OTHER ==
[2022-04-09 21:47] VITALS: BP 125/60; PULSE 82; TEMP 98.5; BMI 29.0
[2022-04-09] MEDS ORDERED: ACETAMINOPHEN 325 MG TABLET (FP) PO ONE (22:55)
[2022-04-09] MEDS ORDERED: AMOXICILLIN 500 MG CAPSULE (FP) PO ONE (22:55)
[2022-04-09] MEDS ORDERED: ACETAMINOPHEN 325 MG TABLET (FP) ONE (22:56)
[2022-04-09] MEDS ORDERED: AMOXICILLIN 250 MG CAPSULE ONE (22:57)
== END 2022-04-09 23:26 | disposition home or self-care (01) ==
LOC: JERFT 21:14 → JER 21:14 → JERFT 23:26
DX: R07.0 Pain in throat (principal)
CPT/HCPCS: 87651; 99283-25

== ENCOUNTER 2022-11-09 11:37 | Emergency (ER) | payer OTHER ==
[2022-11-09 11:47] VITALS: BP 114/71; PULSE 75; RESP 18; TEMP 98.8; BMI 26.4
== END 2022-11-09 13:35 | disposition home or self-care (01) ==
LOC: JERFT 11:37
DX: H65.02 Acute serous otitis media, left ear (principal)
CPT/HCPCS: 99282-25

== ENCOUNTER 2022-11-15 18:24 | Emergency (ER) | payer OTHER ==
[2022-11-15 18:54] VITALS: BP 128/77; PULSE 84; RESP 18; TEMP 98.1; BMI 27.2
[2022-11-15 20:07] LABS: EPI CELLS 8 /uL (0-25.1); HYALINE CASTS 4 /uL (0-3.1); PH,URINE 5.5 (5.0-8.0); URINE APPEARANCE CLOUDY; URINE BACTERIA 298 /uL (0-1359); URINE BILIRUBIN NEGATIVE (NEGATIVE); URINE COLOR YELLOW; URINE GLUCOSE (UA) NEGATIVE (NEGATIVE); URINE KETONE NEGATIVE (NEGATIVE); URINE LEUK ESTERASE 2+ (NEGATIVE); URINE NITRITE NEGATIVE (NEGATIVE); URINE PROTEIN 1+ (NEGATIVE); URINE RBC 38 /uL (0-23.9); URINE WBC 935 /uL (0-25.8)
== END 2022-11-15 20:16 | disposition home or self-care (01) ==
LOC: JERFT 18:24
DX: N30.00 Acute cystitis without hematuria (principal)
CPT/HCPCS: 81003; 87086; 87186; 99283-25

== ENCOUNTER 2023-02-20 16:56 | Emergency (ER) | payer OTHER ==
[2023-02-20 17:09] VITALS: BP 105/59; PULSE 74; RESP 18; TEMP 99.1; BMI 27.9
== END 2023-02-20 18:28 | disposition home or self-care (01) ==
LOC: JER 16:56 → JERFT 16:56
DX: H10.33 Unspecified acute conjunctivitis, bilateral (principal); H57.9 Unspecified disorder of eye and adnexa
CPT/HCPCS: 99283-25

== ENCOUNTER 2023-03-08 21:17 | Emergency (ER) | payer OTHER ==
[2023-03-08 21:21] VITALS: BP 128/58; PULSE 84; RESP 18; TEMP 97.6; BMI 29.2
== END 2023-03-08 23:43 | disposition home or self-care (01) ==
LOC: JERFT 21:17 → JER 21:17
DX: S93.402A Sprain of unspecified ligament of left ankle, initial encounter (principal); M25.572 Pain in left ankle and joints of left foot; R22.42 Localized swelling, mass and lump, left lower limb; X50.1XXA Overexertion from prolonged static or awkward postures, initial encounter
CPT/HCPCS: 73610-TC-LT-FY; 73630-TC-LT; 99283-25

== ENCOUNTER 2023-11-18 18:45 | Emergency (ER) | payer OTHER ==
[2023-11-18 18:58] VITALS: BP 134/74; PULSE 63; RESP 18; TEMP 98; BMI 29.9
[2023-11-18] MEDS ORDERED: LIDOCAINE 5% TOPICAL PATCH TP ONE (20:16)
[2023-11-18] MEDS ORDERED: ACETAMINOPHEN 500 MG TABLET (FP) PO ONE (20:16)
[2023-11-18] MEDS ORDERED: METHOCARBAMOL 500 MG TABLET PO ONE (20:17)
[2023-11-18] MEDS ORDERED: LIDOCAINE 4% PATCH TP ONE (20:22)
[2023-11-18] MEDS ORDERED: ACETAMINOPHEN 500 MG TABLET (FP) ONE (20:22)
[2023-11-18] MEDS ORDERED: METHOCARBAMOL 500 MG TABLET ONE (20:22)
[2023-11-19] MEDS ORDERED: LIDOCAINE PATCH REMOVAL MC ONE (09:00)
== END 2023-11-18 21:56 | disposition home or self-care (01) ==
LOC: JERFT 18:45 → JER 18:45 → JERFT 21:56
DX: M54.50 Low back pain, unspecified (principal); M51.26 Other intervertebral disc displacement, lumbar region; M79.10 Myalgia, unspecified site; M79.662 Pain in left lower leg; M54.42 Lumbago with sciatica, left side
CPT/HCPCS: 99283-25

== ENCOUNTER 2023-12-20 04:08 | Day surgery (SDC) | payer OTHER ==
[2023-12-14 15:15] VITALS: BMI 30.9
[2023-12-20] MEDS ORDERED: LIDOCAINE HCL/PF 1% SDV 5ML VIAL ONE (07:33)
[2023-12-20] MEDS ORDERED: DEXAMETHASONE SOD PHOSPHATE 10 MG/1 ML VIAL ONE (07:33)
[2023-12-20 07:53] VITALS: PULSE 60
[2023-12-20] MEDS: DEXAMETHASONE SOD PHOSPHATE 10 MG/1 ML VIAL IVPUSH ONE ×3 (08:40→08:47)
[2023-12-20] MEDS: IOHEXOL 180 MG/1 ML ML IJ ONE ×2 (08:40→08:41)
[2023-12-20] MEDS: LIDOCAINE 1% P/F 10 MG/ML VIAL INF ONE (08:41)
[2023-12-20 09:05] VITALS: BP 124/82; RESP 16; TEMP 97
[2023-12-20] MEDS ORDERED: ACETAMINOPHEN 500 MG TABLET (FP) PO PRN (11:35)
== END 2023-12-20 09:15 | disposition home or self-care (01) ==
LOC: JASU-SURG 04:08
PROVIDERS: ATTEND Pain Medicine Pain Medicine
PROC: 3E0R3BZ Introduction of Anesthetic Agent into Spinal Canal, Percutaneous Approach (ICD-10-PCS; 2023-12-20)
PROC: 3E0R33Z Introduction of Anti-inflammatory into Spinal Canal, Percutaneous Approach (ICD-10-PCS; principal; 2023-12-20 08:45)
DX: M54.16 Radiculopathy, lumbar region (principal)
CPT/HCPCS: 76000-TC-FY; J1100

== ENCOUNTER 2024-01-17 05:18 | Day surgery (SDC) | payer OTHER ==
[2024-01-12 10:31] VITALS: BMI 30.9
[2024-01-17] MEDS ORDERED: DEXAMETHASONE SOD PHOSPHATE 10 MG/1 ML VIAL ONE (07:25)
[2024-01-17] MEDS ORDERED: LIDOCAINE HCL/PF 1% SDV 5ML VIAL ONE (07:25)
[2024-01-17] MEDS: LIDOCAINE 1% P/F 10 MG/ML VIAL INF ONE ×3 (11:23→11:36)
[2024-01-17] MEDS: IOHEXOL 180 MG/1 ML ML IJ ONE ×3 (11:23→11:41)
[2024-01-17] MEDS: DEXAMETHASONE SOD PHOSPHATE 10 MG/1 ML VIAL IVPUSH ONE ×3 (11:24→11:41)
[2024-01-17 11:57] VITALS: BP 123/57; PULSE 58; RESP 20; TEMP 98
[2024-01-17] MEDS ORDERED: ACETAMINOPHEN 500 MG TABLET (FP) PO PRN (13:19)
== END 2024-01-17 12:59 | disposition home or self-care (01) ==
LOC: JASU-SURG 05:18
PROVIDERS: ATTEND Pain Medicine Pain Medicine
PROC: 3E0R3BZ Introduction of Anesthetic Agent into Spinal Canal, Percutaneous Approach (ICD-10-PCS; 2024-01-17)
PROC: 3E0R33Z Introduction of Anti-inflammatory into Spinal Canal, Percutaneous Approach (ICD-10-PCS; principal; 2024-01-17 11:30)
DX: M54.16 Radiculopathy, lumbar region (principal)
CPT/HCPCS: 76000-TC-FY; J1100